=== PATIENT | female | born 1950 | race Caucasian/White ===

== ENCOUNTER → 2017-05-19 | Outpatient (CLI) | payer MEDICARE, OTHER ==
[~2017-05-19] MED LIST: ACET325 PO; ALLO100 PO; AMOX875 PO; CEPH500; FURO20 PO; HYDR10 PO; HYDR1TAB94 PO; INSULANPEN SC; LEVSOD125 PO; LISI5 PO; MIRALAX17 GM PO; ONDA4ODT PO; POTCHL10ER PO; PRAV20 PO; Pedi-Dri 100,0060 GM TOP; SACC250C PO; SERT50 PO
[2017-05-19 15:45] LABS: Hematocrit 39.9 % (33.0-51.0); Hemoglobin 12.4 g/dL (11.5-16.0)
[2017-05-19 16:03] LABS: Albumin, Blood 3.7 g/dL (3.4-5.0); Anion Gap 7 mmol/L (6-16); Blood Urea Nitrogen 55 mg/dL (8-24); Bun/Creatinine Ratio 29.7 (12.0-20.0); CO2, Blood 25 mmol/L (21-32); Calcium, Blood 9.6 mg/dL (8.5-10.1); Chloride, Blood 105 mmol/L (98-108); Creatinine, Blood 1.85 mg/dL (0.40-1.00); Glomerular Filtration Rate 29 (60-); Glucose, Blood 251 mg/dL (70-99); Phosphorus, Blood 4.3 mg/dL (2.5-4.9); Potassium, Blood 5.4 mmol/L (3.5-5.5); Sodium, Blood 137 mmol/L (136-145)
== END | disposition home or self-care (01) ==
LOC: OLS 13:06
PROVIDERS: Internal Medicine
DX: N18.3 Chronic kidney disease, stage 3 (moderate) (principal); D63.1 Anemia in chronic kidney disease
CPT/HCPCS: 36415; 80069; 85014; 85018

== ENCOUNTER 2018-05-12 19:50 | Emergency (ER) | payer MEDICARE, OTHER ==
[~2018-05-12] VITALS: Ht 160 cm; Wt 114.8 kg
[2018-05-12 20:50] LABS: Calcium, Ionized (POC) 1.26 mmol/L (1.10-1.46); Chloride (POC) 108 mmol/L (98-108); Creatinine (POC) 1.9 mg/dL (0.6-1.0); Glucose (ISTAT POC) 114 mg/dL (70-99); Hemoglobin (POC) 12.6 g/dL (12.0-16.0); Potassium (POC) 5.7 mmol/L (3.5-5.5); Sodium (POC) 141 mmol/L (135-148); Total CO2 (POC) 21 mmol/L (21-32)
[2018-05-12] MEDS ORDERED: LISI20 (20:52)
[2018-05-12] MEDS ORDERED: ALLO100 (20:53)
[2018-05-12] MEDS ORDERED: PRAV20 (20:53)
[2018-05-12] MEDS ORDERED: Zestril30 MG PO (20:53)
[2018-05-12] MEDS ORDERED: LEVSOD125 (20:54)
[2018-05-12] MEDS ORDERED: INSULANPEN (20:54)
[2018-05-12] MEDS ORDERED: VARE1 PO (21:00)
[2018-05-12 21:06] LABS: BASOPHILS ABSOLUTE AUTO 0.07 K/mm3 (0.00-0.23); BASOPHILS PERCENT AUTO 1 % (0-2); EOSINOPHILS ABSOLUTE AUTO 0.44 K/mm3 (0.00-0.68); EOSINOPHILS PERCENT AUTO 4 % (0-6); Hematocrit 38.8 % (33.0-51.0); IMMATURE GRAN ABSOLUTE AUTO 0.26 K/mm3 (0.00-0.10); IMMATURE GRAN PERCENT AUTO 2 % (0-1); LYMPHOCYTES ABSOLUTE AUTO 2.21 K/mm3 (0.84-5.20); LYMPHOCYTES PERCENT AUTO 19 % (21-46); MONOCYTES ABSOLUTE AUTO 0.84 K/mm3 (0.16-1.47); MONOCYTES PERCENT AUTO 7 % (4-13); Mean Corpuscular HGB Conc 30.9 g/dL (31.5-36.5); Mean Corpuscular Volume 97 fL (80-100); NEUTROPHILS PERCENT AUTO 67 % (41-73); NRBC ABSOLUTE 0.04 K/mm3 (0.00-0.02); NRBC Auto 0.3 /100 WBC (0.0-0.2); Platelet Count 160 K/mm3 (150-400); RDW Coefficient Variation 17.2 % (11.7-14.2); RDW Standard Deviation 60.3 fL (35.1-46.3); White Blood Cell Count 11.52 K/mm3 (4.00-11.30)
[2018-05-12 21:25] LABS: Bilirubin, Total 0.5 mg/dL (0.1-1.0); Bun/Creatinine Ratio 20.8 (12.0-20.0); Calcium, Blood 9.1 mg/dL (8.5-10.1); Creatinine, Blood 2.02 mg/dL (0.40-1.00); Globulin, Blood 4.1 g/dL (2.2-4.0); Potassium, Blood 5.7 mmol/L (3.5-5.5); Total Protein, Blood 8.1 g/dL (6.4-8.2)
== END 2018-05-12 23:06 | disposition home or self-care (01) ==
LOC: ER 19:50
PROVIDERS: Emergency Medicine; Physician Assistant
DX: E87.6 Hypokalemia (principal); I13.0 Hypertensive heart and chronic kidney disease with heart failure and stage 1 through stage 4 chronic kidney disease, or unspecified chronic kidney disease; I50.9 Heart failure, unspecified; N18.4 Chronic kidney disease, stage 4 (severe); E11.22 Type 2 diabetes mellitus with diabetic chronic kidney disease; F32.9 Major depressive disorder, single episode, unspecified; E03.9 Hypothyroidism, unspecified; Z79.899 Other long term (current) drug therapy; F17.210 Nicotine dependence, cigarettes, uncomplicated; Z01.812 Encounter for preprocedural laboratory examination; L98.499 Non-pressure chronic ulcer of skin of other sites with unspecified severity
CPT/HCPCS: 36415; 80047; 80048; 80053; 85014; 85025; 93005; 93010; 96360; 99284-25; J7030

== ENCOUNTER 2018-05-15 08:55 | Day surgery (SDC) | payer MEDICARE, OTHER ==
[~2018-05-15] VITALS: Ht 160 cm; Wt 116.1 kg
[~2018-05-15 08:55] MED LIST changes: +ALLO100; +INSULANPEN; +LEVSOD125; +LISI20; +PRAV20; +VARE1 PO; +Zestril30 MG PO
--- NOTE | 2018-05-15 14:41 | NUR ---
05/15/18 1441 Aisha Escobar AT 1240 PT WAS DC'D IN STABLE CONDITION W/INSTRUCTIONS FOR CARE AND F/U. RX X2 GIVEN W/INSTRUCTIONS FOR USE BOTH PT AND HER DAUGHTER STATED UNDERSTANDING AND SHOWN HOW TO OPERATE AIR CELL CAST BOOT. KAREN PO FLUIDS AND BG WAS 119 AT ADMIT
== END 2018-05-15 12:40 | disposition home or self-care (01) ==
LOC: ORSCSDS 08:55
PROVIDERS: Podiatrist Foot & Ankle Surgery
PROC: 0QBN0ZZ Excision of Right Metatarsal, Open Approach (ICD-10-PCS; principal; 2018-05-15 10:15)
DX: L98.499 Non-pressure chronic ulcer of skin of other sites with unspecified severity (principal); I12.9 Hypertensive chronic kidney disease with stage 1 through stage 4 chronic kidney disease, or unspecified chronic kidney disease; E11.22 Type 2 diabetes mellitus with diabetic chronic kidney disease; N18.4 Chronic kidney disease, stage 4 (severe); E03.9 Hypothyroidism, unspecified; E66.01 Morbid (severe) obesity due to excess calories; Z68.42 Body mass index [BMI] 45.0-49.9, adult; Z79.899 Other long term (current) drug therapy
CPT/HCPCS: 82947; 88305; 88311; J0690; J1100; J1885; J2250; J2405; J3010; J7120

== ENCOUNTER 2022-02-05 02:38 | Day surgery (SDC) | payer MEDICARE, OTHER ==
[~2022-02-05 02:38] MED LIST changes: +INSULANI SC
== END 2022-02-05 23:09 | disposition home or self-care (01) ==
LOC: WOUND 02:38
DX: E11.621 Type 2 diabetes mellitus with foot ulcer (principal); L97.513 Non-pressure chronic ulcer of other part of right foot with necrosis of muscle; L97.519 Non-pressure chronic ulcer of other part of right foot with unspecified severity; L97.529 Non-pressure chronic ulcer of other part of left foot with unspecified severity; E11.622 Type 2 diabetes mellitus with other skin ulcer; L97.812 Non-pressure chronic ulcer of other part of right lower leg with fat layer exposed; E11.59 Type 2 diabetes mellitus with other circulatory complications; I70.203 Unspecified atherosclerosis of native arteries of extremities, bilateral legs; E11.40 Type 2 diabetes mellitus with diabetic neuropathy, unspecified; I12.9 Hypertensive chronic kidney disease with stage 1 through stage 4 chronic kidney disease, or unspecified chronic kidney disease; N18.9 Chronic kidney disease, unspecified; E11.22 Type 2 diabetes mellitus with diabetic chronic kidney disease; Z88.0 Allergy status to penicillin
CPT/HCPCS: G0463

== ENCOUNTER 2022-02-12 01:50 | Day surgery (SDC) | payer MEDICARE, OTHER | END 2022-02-12 23:22 | disposition home or self-care (01) | LOC: WOUND 01:50 | DX: E11.621 Type 2 diabetes mellitus with foot ulcer (principal); L97.513 Non-pressure chronic ulcer of other part of right foot with necrosis of muscle; L97.522 Non-pressure chronic ulcer of other part of left foot with fat layer exposed; L97.412 Non-pressure chronic ulcer of right heel and midfoot with fat layer exposed; E11.622 Type 2 diabetes mellitus with other skin ulcer; E11.51 Type 2 diabetes mellitus with diabetic peripheral angiopathy without gangrene; I70.203 Unspecified atherosclerosis of native arteries of extremities, bilateral legs; E11.22 Type 2 diabetes mellitus with diabetic chronic kidney disease; N18.9 Chronic kidney disease, unspecified; E11.40 Type 2 diabetes mellitus with diabetic neuropathy, unspecified; E87.5 Hyperkalemia; Z89.421 Acquired absence of other right toe(s); Z88.0 Allergy status to penicillin | CPT/HCPCS: A9270 ==

== ENCOUNTER 2022-02-19 03:07 | Day surgery (SDC) | payer MEDICARE, OTHER | END 2022-02-19 23:31 | disposition home or self-care (01) | LOC: WOUND 03:07 | DX: T87.89 Other complications of amputation stump (principal); E11.621 Type 2 diabetes mellitus with foot ulcer; L97.512 Non-pressure chronic ulcer of other part of right foot with fat layer exposed; E11.51 Type 2 diabetes mellitus with diabetic peripheral angiopathy without gangrene; I70.203 Unspecified atherosclerosis of native arteries of extremities, bilateral legs; E87.5 Hyperkalemia; E11.40 Type 2 diabetes mellitus with diabetic neuropathy, unspecified; E11.22 Type 2 diabetes mellitus with diabetic chronic kidney disease; N18.9 Chronic kidney disease, unspecified | CPT/HCPCS: G0463 ==

== ENCOUNTER 2022-02-26 04:13 | Day surgery (SDC) | payer MEDICARE, OTHER | END 2022-02-26 23:19 | disposition home or self-care (01) | LOC: WOUND 04:13 | DX: T87.89 Other complications of amputation stump (principal); E11.621 Type 2 diabetes mellitus with foot ulcer; L97.512 Non-pressure chronic ulcer of other part of right foot with fat layer exposed; E11.22 Type 2 diabetes mellitus with diabetic chronic kidney disease; N18.9 Chronic kidney disease, unspecified; E87.5 Hyperkalemia | CPT/HCPCS: G0463 ==

== ENCOUNTER 2022-03-05 08:00 | Day surgery (SDC) | payer MEDICARE, OTHER | END 2022-03-05 23:59 | disposition home or self-care (01) | LOC: WOUND 08:00 | DX: T87.89 Other complications of amputation stump (principal); E11.621 Type 2 diabetes mellitus with foot ulcer; L97.512 Non-pressure chronic ulcer of other part of right foot with fat layer exposed; L97.522 Non-pressure chronic ulcer of other part of left foot with fat layer exposed; E87.5 Hyperkalemia; N18.9 Chronic kidney disease, unspecified; E11.22 Type 2 diabetes mellitus with diabetic chronic kidney disease; E11.40 Type 2 diabetes mellitus with diabetic neuropathy, unspecified | CPT/HCPCS: A9270; G0463 ==

== ENCOUNTER → 2022-03-05 | Outpatient (CLI) | payer MEDICARE, OTHER | END | disposition home or self-care (01) | LOC: LAB 09:20 → LAB SHORT 09:20 → LAB FUT 02-27 15:10 | PROVIDERS: Internal Medicine Nephrology | DX: N18.30 Chronic kidney disease, stage 3 unspecified (principal); D63.1 Anemia in chronic kidney disease; N25.81 Secondary hyperparathyroidism of renal origin; E78.00 Pure hypercholesterolemia, unspecified; E55.9 Vitamin D deficiency, unspecified; R76.9 Abnormal immunological finding in serum, unspecified; R94.5 Abnormal results of liver function studies; R94.6 Abnormal results of thyroid function studies | CPT/HCPCS: 81050 ==

== ENCOUNTER 2022-03-12 03:29 | Day surgery (SDC) | payer MEDICARE, OTHER ==
[~2022-03-12 03:29] MED LIST changes: -ALLO100
== END 2022-03-12 22:43 | disposition home or self-care (01) ==
LOC: WOUND 03:29
DX: E11.621 Type 2 diabetes mellitus with foot ulcer (principal); T87.89 Other complications of amputation stump; I87.2 Venous insufficiency (chronic) (peripheral); L97.512 Non-pressure chronic ulcer of other part of right foot with fat layer exposed; L97.522 Non-pressure chronic ulcer of other part of left foot with fat layer exposed; N18.9 Chronic kidney disease, unspecified; E11.40 Type 2 diabetes mellitus with diabetic neuropathy, unspecified; E11.22 Type 2 diabetes mellitus with diabetic chronic kidney disease; E11.51 Type 2 diabetes mellitus with diabetic peripheral angiopathy without gangrene; I70.203 Unspecified atherosclerosis of native arteries of extremities, bilateral legs; E87.5 Hyperkalemia
CPT/HCPCS: G0463

== ENCOUNTER 2022-03-18 08:47 | Day surgery (SDC) | payer MEDICARE, OTHER ==
[~2022-03-18] VITALS: Ht 160 cm; Wt 97.1 kg
--- NOTE | 2022-03-18 09:48 | NUR ---
LAB AT THE BEDSIDE FOR LAB DRAW. LAST LABS WERE DATED Feb,. PATIENT PREPPED FOR PROCEDURE PER PROTOCOL AND FAMILY REMAINS AT THE BEDSDIE. ALL QUESTIONS ANSWERED.
[2022-03-18 10:21] LABS: International Normalized Ratio 0.98; Prothrombin Time Results 10.3 Sec (9.7-11.5)
[2022-03-18 10:45] LABS: Bun/Creatinine Ratio 26.7 (12.0-20.0); Calcium, Blood 8.9 mg/dL (8.5-10.1); Creatinine, Blood 2.32 mg/dL (0.40-1.00); Potassium, Blood 5.3 mmol/L (3.5-5.5)
[2022-03-18 10:46] LABS: BASOPHILS ABSOLUTE AUTO 0.05 K/mm3 (0.00-0.23); BASOPHILS PERCENT AUTO 1 % (0-2); EOSINOPHILS ABSOLUTE AUTO 0.15 K/mm3 (0.00-0.68); EOSINOPHILS PERCENT AUTO 2 % (0-6); IMMATURE GRAN ABSOLUTE AUTO 0.12 K/mm3 (0.00-0.10); IMMATURE GRAN PERCENT AUTO 1 % (0-1); LYMPHOCYTES ABSOLUTE AUTO 1.28 K/mm3 (0.84-5.20); LYMPHOCYTES PERCENT AUTO 14 % (21-46); MONOCYTES ABSOLUTE AUTO 0.73 K/mm3 (0.16-1.47); MONOCYTES PERCENT AUTO 8 % (4-13); Mean Corpuscular HGB 28.8 pg (26.0-34.0); Mean Corpuscular Volume 93 fL (80-100); NEUTROPHILS ABSOLUTE AUTO 6.94 K/mm3 (1.96-9.15); NEUTROPHILS PERCENT AUTO 75 % (41-73); NRBC ABSOLUTE 0.02 K/mm3 (0.00-0.02); NRBC Auto 0.2 /100 WBC (0.0-0.2); RDW Coefficient Variation 15.2 % (11.7-14.2); RDW Standard Deviation 52.1 fL (35.1-46.3); Red Blood Cell Count 4.51 M/mm3 (3.80-5.20); White Blood Cell Count 9.27 K/mm3 (4.00-11.30)
[2022-03-18 10:49] LABS: Mean Platelet Volume 10.3 fL (9.1-12.4)
[2022-03-18 11:47] LABS: Platelet Count 121 K/mm3 (150-400)
--- NOTE | 2022-03-18 14:29 | NUR ---
1410 PATIENT RETURNED FROM THE CATHLAB, PATIENT PLACED ON THE MONITOR AND SBAR RECEIVED FROM RUY PUENTE AT [facility] BEDSIDE. DR. HERNANDEZ AT THE BEDSIDE TO OBTAIN DOPPLER PULSES TO THE RIGHT/LEFT FOOT. UNABLE TO FIND RIGHT DP ALL OTHERS FOUND. DRESSING TO THE RIGHT DP/PT REMOVED WHILE FINDING PULSES AND THE RPT LUIS DRESSING REPLACED AFTER SITE CLEANED. THE RIGHT DP SITE LEFT OPEN TO AIR. THE LEFT FEMORAL SITE IS CDI WITH DRESSING IN PLACE. SOFT, NO BLEEDING NOTED. NIBP AND SAT READING ARE LOW BUT THE PATIENT IS SLEEPY ADN DID RECEIVE SEDATION IN THE LAB, CONINTUE TO MONITOR.
--- NOTE | 2022-03-18 16:49 | NUR ---
1700 PATIENT UP TO THE RESTROOM WITH ASSISTANCE AND WALKER. VOIDED. BACK TO THE BEDSIDE AND SAT ON THE SIDE ON THE BED TO EAT LATE LUNCH TRAY. DAUGHTER TO THE BEDSIDE. VVS. RIGHT FOOT STABLE, NO BLEEDING NOTED.
--- NOTE | 2022-03-18 16:57 | NUR ---
1700 PATIENT UP AND DRESSING, ALL BELONGINGS RETAINED BY PATIENT. PIV REMOVED FROM KERI LEFT AC AND PRESSURE DRESSING APPLIED. CATH TIP INTACT. REVIEWED DISCHARGE INSTRUCTIONS WITH THE PAITENT AND DAUGHTER. THE PATIETN WILL FOLLOW UP WITH DR. GOLD'S OFFICE REGARDING UPCOMING CT OF KIDNEY'S
--- NOTE | 2022-03-18 17:25 | NUR ---
1710 RIGHT FOOT REWRAPPED AND PATIENT DISCHARGED HOME VIA WHEELCHAIR.
== END 2022-03-18 17:00 | disposition home or self-care (01) ==
LOC: MHTC 08:47
PROVIDERS: Radiology Diagnostic Radiology
DX: E11.51 Type 2 diabetes mellitus with diabetic peripheral angiopathy without gangrene (principal); I70.221 Atherosclerosis of native arteries of extremities with rest pain, right leg; I12.9 Hypertensive chronic kidney disease with stage 1 through stage 4 chronic kidney disease, or unspecified chronic kidney disease; E11.22 Type 2 diabetes mellitus with diabetic chronic kidney disease; M10.9 Gout, unspecified; E78.5 Hyperlipidemia, unspecified; N18.9 Chronic kidney disease, unspecified; Z90.711 Acquired absence of uterus with remaining cervical stump; Z89.421 Acquired absence of other right toe(s); Z87.891 Personal history of nicotine dependence
CPT/HCPCS: 36140; 36415; 37228; 37232; 75625; 75716; 75774; 76937; 80048; 85025; 85347; 85610; 99152; 99153; C1725; C1760; C1769; C1874; C1887; C1894; C2623; C9765; J1644; J2250; J3010; J7030; J7040; Q9967

== ENCOUNTER 2022-03-26 02:17 | Day surgery (SDC) | payer MEDICARE, OTHER | END 2022-03-26 23:05 | disposition home or self-care (01) | LOC: WOUND 02:17 | DX: T87.89 Other complications of amputation stump (principal); Z89.421 Acquired absence of other right toe(s); E11.621 Type 2 diabetes mellitus with foot ulcer; L97.512 Non-pressure chronic ulcer of other part of right foot with fat layer exposed; E11.22 Type 2 diabetes mellitus with diabetic chronic kidney disease; N18.9 Chronic kidney disease, unspecified; E11.40 Type 2 diabetes mellitus with diabetic neuropathy, unspecified; E87.5 Hyperkalemia | CPT/HCPCS: A9270 ==

== ENCOUNTER 2022-04-02 02:59 | Day surgery (SDC) | payer MEDICARE, OTHER | END 2022-04-02 23:03 | disposition home or self-care (01) | LOC: WOUND 02:59 | DX: T87.89 Other complications of amputation stump (principal); E11.621 Type 2 diabetes mellitus with foot ulcer; L97.512 Non-pressure chronic ulcer of other part of right foot with fat layer exposed; E11.22 Type 2 diabetes mellitus with diabetic chronic kidney disease; N18.9 Chronic kidney disease, unspecified; I70.203 Unspecified atherosclerosis of native arteries of extremities, bilateral legs; E87.5 Hyperkalemia | CPT/HCPCS: A9270 ==

== ENCOUNTER 2022-04-09 02:13 | Day surgery (SDC) | payer MEDICARE, OTHER | END 2022-04-09 22:45 | disposition home or self-care (01) | LOC: WOUND 02:13 | DX: T87.89 Other complications of amputation stump (principal); E11.621 Type 2 diabetes mellitus with foot ulcer; L97.512 Non-pressure chronic ulcer of other part of right foot with fat layer exposed; L97.522 Non-pressure chronic ulcer of other part of left foot with fat layer exposed; L89.890 Pressure ulcer of other site, unstageable | CPT/HCPCS: A9270; G0463 ==

== ENCOUNTER 2022-04-16 00:21 | Day surgery (SDC) | payer MEDICARE, OTHER | END 2022-04-16 23:18 | disposition home or self-care (01) | LOC: WOUND 00:21 | DX: E11.621 Type 2 diabetes mellitus with foot ulcer (principal); L97.513 Non-pressure chronic ulcer of other part of right foot with necrosis of muscle; E11.59 Type 2 diabetes mellitus with other circulatory complications; I70.203 Unspecified atherosclerosis of native arteries of extremities, bilateral legs; E11.22 Type 2 diabetes mellitus with diabetic chronic kidney disease; N18.9 Chronic kidney disease, unspecified; E11.40 Type 2 diabetes mellitus with diabetic neuropathy, unspecified; E87.5 Hyperkalemia | CPT/HCPCS: G0463 ==

== ENCOUNTER 2022-04-25 04:09 | Day surgery (SDC) | payer MEDICARE, OTHER | END 2022-04-25 22:47 | disposition home or self-care (01) | LOC: WOUND 04:09 | DX: E11.621 Type 2 diabetes mellitus with foot ulcer (principal); T87.89 Other complications of amputation stump; L97.522 Non-pressure chronic ulcer of other part of left foot with fat layer exposed; L97.512 Non-pressure chronic ulcer of other part of right foot with fat layer exposed; E11.51 Type 2 diabetes mellitus with diabetic peripheral angiopathy without gangrene; E11.22 Type 2 diabetes mellitus with diabetic chronic kidney disease; I70.203 Unspecified atherosclerosis of native arteries of extremities, bilateral legs; N18.9 Chronic kidney disease, unspecified; E87.5 Hyperkalemia | CPT/HCPCS: G0463 ==

== ENCOUNTER 2022-05-07 01:25 | Day surgery (SDC) | payer MEDICARE, OTHER | END 2022-05-07 22:46 | disposition home or self-care (01) | LOC: WOUND 01:25 | DX: E11.621 Type 2 diabetes mellitus with foot ulcer (principal); E11.22 Type 2 diabetes mellitus with diabetic chronic kidney disease; L97.513 Non-pressure chronic ulcer of other part of right foot with necrosis of muscle; L03.115 Cellulitis of right lower limb; M86.171 Other acute osteomyelitis, right ankle and foot; N18.9 Chronic kidney disease, unspecified; I70.203 Unspecified atherosclerosis of native arteries of extremities, bilateral legs; E11.40 Type 2 diabetes mellitus with diabetic neuropathy, unspecified; E11.59 Type 2 diabetes mellitus with other circulatory complications; E87.5 Hyperkalemia; Z79.4 Long term (current) use of insulin; L89.899 Pressure ulcer of other site, unspecified stage | CPT/HCPCS: G0463 ==

== ENCOUNTER 2022-05-21 00:28 | Day surgery (SDC) | payer MEDICARE, OTHER | END 2022-05-21 22:55 | disposition home or self-care (01) | LOC: WOUND 00:28 | DX: E11.69 Type 2 diabetes mellitus with other specified complication (principal); M86.171 Other acute osteomyelitis, right ankle and foot; E11.621 Type 2 diabetes mellitus with foot ulcer; L97.513 Non-pressure chronic ulcer of other part of right foot with necrosis of muscle; L03.115 Cellulitis of right lower limb; E11.22 Type 2 diabetes mellitus with diabetic chronic kidney disease; N18.9 Chronic kidney disease, unspecified; E11.40 Type 2 diabetes mellitus with diabetic neuropathy, unspecified; I70.203 Unspecified atherosclerosis of native arteries of extremities, bilateral legs | CPT/HCPCS: G0463 ==

== ENCOUNTER 2022-05-28 01:05 | Day surgery (SDC) | payer MEDICARE, OTHER | END 2022-05-28 22:58 | disposition home or self-care (01) | LOC: WOUND 01:05 | DX: E11.621 Type 2 diabetes mellitus with foot ulcer (principal); L97.513 Non-pressure chronic ulcer of other part of right foot with necrosis of muscle; L89.892 Pressure ulcer of other site, stage 2; E11.69 Type 2 diabetes mellitus with other specified complication; M86.171 Other acute osteomyelitis, right ankle and foot; E11.22 Type 2 diabetes mellitus with diabetic chronic kidney disease; N18.9 Chronic kidney disease, unspecified; E11.40 Type 2 diabetes mellitus with diabetic neuropathy, unspecified; E11.51 Type 2 diabetes mellitus with diabetic peripheral angiopathy without gangrene; I70.203 Unspecified atherosclerosis of native arteries of extremities, bilateral legs | CPT/HCPCS: A9270 ==

== ENCOUNTER 2022-06-04 06:41 | Day surgery (SDC) | payer MEDICARE, OTHER ==
[~2022-06-04] VITALS: Ht 160 cm; Wt 97.9 kg
--- NOTE | 2022-06-04 07:04 | NUR ---
06/04/22 0704 Carlie Costa CALL LIGHT WITHIN REACH. LAKSHMIIN IN RIGHT EYE AT 0655 AND YAMINI AT 0656
== END 2022-06-04 08:10 | disposition home or self-care (01) ==
LOC: ORSCSDS 06:41
PROVIDERS: Student in an Organized Health Care Education/Training Program
PROC: 08DJ3ZZ Extraction of Right Lens, Percutaneous Approach (ICD-10-PCS; principal; 2022-06-04 07:30)
DX: E11.36 Type 2 diabetes mellitus with diabetic cataract (principal); H25.13 Age-related nuclear cataract, bilateral; I12.9 Hypertensive chronic kidney disease with stage 1 through stage 4 chronic kidney disease, or unspecified chronic kidney disease; N18.9 Chronic kidney disease, unspecified; E03.9 Hypothyroidism, unspecified; E78.5 Hyperlipidemia, unspecified; I73.9 Peripheral vascular disease, unspecified; M10.9 Gout, unspecified; Z87.891 Personal history of nicotine dependence; Z79.4 Long term (current) use of insulin; Z79.899 Other long term (current) drug therapy
CPT/HCPCS: 82947; J2001; J2250; J7040; V2632

== ENCOUNTER 2022-06-05 08:00 | Day surgery (SDC) | payer MEDICARE, OTHER | END 2022-06-05 23:59 | disposition home or self-care (01) | LOC: WOUND 08:00 | DX: T87.89 Other complications of amputation stump (principal); E11.621 Type 2 diabetes mellitus with foot ulcer; L97.512 Non-pressure chronic ulcer of other part of right foot with fat layer exposed; L89.899 Pressure ulcer of other site, unspecified stage; L03.115 Cellulitis of right lower limb; M86.171 Other acute osteomyelitis, right ankle and foot; N18.9 Chronic kidney disease, unspecified; I70.203 Unspecified atherosclerosis of native arteries of extremities, bilateral legs; E11.51 Type 2 diabetes mellitus with diabetic peripheral angiopathy without gangrene; E11.22 Type 2 diabetes mellitus with diabetic chronic kidney disease | CPT/HCPCS: G0463 ==

== ENCOUNTER 2022-06-25 00:30 | Day surgery (SDC) | payer MEDICARE, OTHER ==
[2022-06-25] MEDS ORDERED: SODBIC650 PO (08:40)
[2022-06-25] MEDS ORDERED: Lasix40 MG PO (08:40)
== END 2022-06-25 23:04 | disposition home or self-care (01) ==
LOC: WOUND 00:30
DX: E11.621 Type 2 diabetes mellitus with foot ulcer (principal); L97.514 Non-pressure chronic ulcer of other part of right foot with necrosis of bone; L97.512 Non-pressure chronic ulcer of other part of right foot with fat layer exposed; E11.69 Type 2 diabetes mellitus with other specified complication; M86.171 Other acute osteomyelitis, right ankle and foot; E11.51 Type 2 diabetes mellitus with diabetic peripheral angiopathy without gangrene; I70.203 Unspecified atherosclerosis of native arteries of extremities, bilateral legs; E11.40 Type 2 diabetes mellitus with diabetic neuropathy, unspecified; L03.115 Cellulitis of right lower limb
CPT/HCPCS: G0463

== ENCOUNTER 2022-06-25 08:21 | Day surgery (SDC) | payer MEDICARE ==
[~2022-06-25] VITALS: Ht 160 cm; Wt 96.4 kg
[2022-06-25] MEDS ORDERED: SODBIC650 PO (08:40)
[2022-06-25] MEDS ORDERED: Lasix40 MG PO (08:40)
== END 2022-06-25 09:36 | disposition home or self-care (01) ==
LOC: ORSCSDS 08:21
PROVIDERS: Student in an Organized Health Care Education/Training Program
PROC: 08RK3JZ Replacement of Left Lens with Synthetic Substitute, Percutaneous Approach (ICD-10-PCS; principal; 2022-06-25 09:30)
DX: E11.36 Type 2 diabetes mellitus with diabetic cataract (principal); H25.12 Age-related nuclear cataract, left eye; I12.9 Hypertensive chronic kidney disease with stage 1 through stage 4 chronic kidney disease, or unspecified chronic kidney disease; E11.22 Type 2 diabetes mellitus with diabetic chronic kidney disease; N18.9 Chronic kidney disease, unspecified; E78.5 Hyperlipidemia, unspecified; E03.9 Hypothyroidism, unspecified; E66.9 Obesity, unspecified; Z68.37 Body mass index [BMI] 37.0-37.9, adult; Z79.4 Long term (current) use of insulin; Z79.899 Other long term (current) drug therapy
CPT/HCPCS: 82947; J2001; J2250; J3010; J7040; V2632

== ENCOUNTER 2022-07-08 00:28 | Day surgery (SDC) | payer MEDICARE, OTHER ==
[~2022-07-08 00:28] MED LIST changes: +Lasix40 MG PO; +SODBIC650 PO
== END 2022-07-08 23:12 | disposition home or self-care (01) ==
LOC: WOUND 00:28
DX: E11.621 Type 2 diabetes mellitus with foot ulcer (principal); L89.899 Pressure ulcer of other site, unspecified stage; L97.512 Non-pressure chronic ulcer of other part of right foot with fat layer exposed; I87.2 Venous insufficiency (chronic) (peripheral); E11.51 Type 2 diabetes mellitus with diabetic peripheral angiopathy without gangrene; E11.69 Type 2 diabetes mellitus with other specified complication; M86.171 Other acute osteomyelitis, right ankle and foot; E11.22 Type 2 diabetes mellitus with diabetic chronic kidney disease; N18.9 Chronic kidney disease, unspecified; E11.40 Type 2 diabetes mellitus with diabetic neuropathy, unspecified; I70.203 Unspecified atherosclerosis of native arteries of extremities, bilateral legs; L03.115 Cellulitis of right lower limb
CPT/HCPCS: G0463

== ENCOUNTER 2022-07-22 00:47 | Day surgery (SDC) | payer MEDICARE, OTHER | END 2022-07-22 22:49 | disposition home or self-care (01) | LOC: WOUND 00:47 | DX: E11.621 Type 2 diabetes mellitus with foot ulcer (principal); L97.512 Non-pressure chronic ulcer of other part of right foot with fat layer exposed; L89.894 Pressure ulcer of other site, stage 4; L03.115 Cellulitis of right lower limb; E11.69 Type 2 diabetes mellitus with other specified complication; M86.171 Other acute osteomyelitis, right ankle and foot; E11.22 Type 2 diabetes mellitus with diabetic chronic kidney disease; N18.9 Chronic kidney disease, unspecified; I70.235 Atherosclerosis of native arteries of right leg with ulceration of other part of foot; E11.51 Type 2 diabetes mellitus with diabetic peripheral angiopathy without gangrene; E11.40 Type 2 diabetes mellitus with diabetic neuropathy, unspecified ==

== ENCOUNTER 2022-07-29 01:07 | Day surgery (SDC) | payer MEDICARE, OTHER | END 2022-07-29 22:55 | disposition home or self-care (01) | LOC: WOUND 01:07 | DX: L89.894 Pressure ulcer of other site, stage 4 (principal); E11.621 Type 2 diabetes mellitus with foot ulcer; L97.512 Non-pressure chronic ulcer of other part of right foot with fat layer exposed; L97.513 Non-pressure chronic ulcer of other part of right foot with necrosis of muscle; L03.115 Cellulitis of right lower limb; M86.171 Other acute osteomyelitis, right ankle and foot; E11.22 Type 2 diabetes mellitus with diabetic chronic kidney disease; N18.9 Chronic kidney disease, unspecified; I70.203 Unspecified atherosclerosis of native arteries of extremities, bilateral legs; E11.40 Type 2 diabetes mellitus with diabetic neuropathy, unspecified | CPT/HCPCS: G0463 ==

== ENCOUNTER 2022-08-05 01:09 | Day surgery (SDC) | payer MEDICARE, OTHER | END 2022-08-05 22:38 | disposition home or self-care (01) | LOC: WOUND | DX: L89.894 Pressure ulcer of other site, stage 4 (principal); E11.621 Type 2 diabetes mellitus with foot ulcer; L97.512 Non-pressure chronic ulcer of other part of right foot with fat layer exposed; L97.519 Non-pressure chronic ulcer of other part of right foot with unspecified severity; L97.513 Non-pressure chronic ulcer of other part of right foot with necrosis of muscle; L03.115 Cellulitis of right lower limb; E11.69 Type 2 diabetes mellitus with other specified complication; M86.171 Other acute osteomyelitis, right ankle and foot; E11.22 Type 2 diabetes mellitus with diabetic chronic kidney disease; N18.9 Chronic kidney disease, unspecified; I70.203 Unspecified atherosclerosis of native arteries of extremities, bilateral legs; E11.40 Type 2 diabetes mellitus with diabetic neuropathy, unspecified | CPT/HCPCS: G0463 ==

== ENCOUNTER 2022-08-12 00:21 | Day surgery (SDC) | payer MEDICARE, OTHER | END 2022-08-12 22:55 | disposition home or self-care (01) | LOC: WOUND 00:21 | DX: E11.621 Type 2 diabetes mellitus with foot ulcer (principal); L97.513 Non-pressure chronic ulcer of other part of right foot with necrosis of muscle; E11.69 Type 2 diabetes mellitus with other specified complication; M86.171 Other acute osteomyelitis, right ankle and foot; L03.115 Cellulitis of right lower limb; E11.51 Type 2 diabetes mellitus with diabetic peripheral angiopathy without gangrene; I70.203 Unspecified atherosclerosis of native arteries of extremities, bilateral legs; E11.40 Type 2 diabetes mellitus with diabetic neuropathy, unspecified; E11.22 Type 2 diabetes mellitus with diabetic chronic kidney disease; N18.9 Chronic kidney disease, unspecified | CPT/HCPCS: G0463 ==

== ENCOUNTER 2023-09-26 02:40 | Day surgery (SDC) | payer MEDICARE, OTHER ==
[~2023-09-26 02:40] MED LIST changes: +ALLO300 PO; +BACLOFEN5 M1 PO; +BASAGLAR K100 UNIT/3 SC; +CLOPIDOGREL75 MG PO; +EUTHYROX150 MC1 PO; +EUTHYROX175 MCG PO; +FARXIGA10 MG PO; +FUROSEMIDE40 MG PO; +GABA300 PO; +HUMALOG100 UNIT/1; +Neurontin 100100 MG PO; +OXYC10TA19 PO; +PIOG15 PO; +PRAVASTATIN SOD40 MG PO; +Prinivil10 MG PO; +SERT25 PO; +VITAMIN D31000 UNI1 PO; +XARELTO20 MG PO; -Zestril30 MG PO
[2023-09-26] MEDS ORDERED: Silver Nitr/Potassium Nitrate 1 EA APPL ONE (12:46)
[2023-10-08] MEDS ORDERED: OXAYDO5 M1 PO (11:07)
[2023-10-08] MEDS ORDERED: SENN187 PO (11:08)
[2023-10-08] MEDS ORDERED: HUMALOG KW100 UNIT/1 SQ (11:08)
[2023-10-08] MEDS ORDERED: HUMALOG JU100 UNIT/2 SQ (11:08)
== END 2023-09-26 23:07 | disposition home or self-care (01) ==
LOC: WOUND
DX: L89.623 Pressure ulcer of left heel, stage 3 (principal); E11.621 Type 2 diabetes mellitus with foot ulcer; I87.2 Venous insufficiency (chronic) (peripheral); E11.51 Type 2 diabetes mellitus with diabetic peripheral angiopathy without gangrene; E11.40 Type 2 diabetes mellitus with diabetic neuropathy, unspecified; I12.9 Hypertensive chronic kidney disease with stage 1 through stage 4 chronic kidney disease, or unspecified chronic kidney disease; E11.22 Type 2 diabetes mellitus with diabetic chronic kidney disease; M10.9 Gout, unspecified; Z88.1 Allergy status to other antibiotic agents
CPT/HCPCS: 73630; A6213; A9270; G0463

== ENCOUNTER 2023-10-09 08:38 | Day surgery (SDC) | payer MEDICARE, OTHER ==
[2023-10-09] VITALS (11 sets, daily range): BP systolic 104–173; BP diastolic 46–81
[~2023-10-09] VITALS: Ht 160 cm; Wt 80.4 kg
[~2023-10-09 08:38] MED LIST changes: +HUMALOG JU100 UNIT/2 SQ; +HUMALOG KW100 UNIT/1 SQ; +OXAYDO5 M1 PO; +SENN187 PO
[2023-10-09] MEDS ORDERED: ACET325 PO (10:04)
[2023-10-09] MEDS ORDERED: BACLOFEN5 M1 PO (10:05)
[2023-10-09 10:23] LABS: Hemoglobin 9.7 g/dL (11.5-16.0); Mean Corpuscular HGB 26.1 pg (26.0-34.0); Mean Corpuscular HGB Conc 29.4 g/dL (31.5-36.5); Mean Corpuscular Volume 89 fL (80-100); NRBC ABSOLUTE 0.02 K/mm3 (0.00-0.02); NRBC Auto 0.2 /100 WBC (0.0-0.2); Platelet Count 124 K/mm3 (150-400); RDW Coefficient Variation 17.1 % (11.7-14.2); RDW Standard Deviation 54.8 fL (35.1-46.3); Red Blood Cell Count 3.72 M/mm3 (3.80-5.20); White Blood Cell Count 9.55 K/mm3 (4.00-11.30)
[2023-10-09 10:37] LABS: Prothrombin Time Results 10.7 Sec (9.7-11.5)
[2023-10-09 10:46] LABS: Bun/Creatinine Ratio 34.1 (12.0-20.0); Calcium, Blood 9.1 mg/dL (8.5-10.1); Creatinine, Blood 1.64 mg/dL (0.40-1.00); Potassium, Blood 4.6 mmol/L (3.5-5.5)
[2023-10-09] MEDS ORDERED: NS 250 ML IV ONE ×2 (12:05→12:16)
[2023-10-09] MEDS ORDERED: Heparin Sodium 1000 Units/ML 10ML MDV ONE ×2 (12:06→13:47)
[2023-10-09] MEDS ORDERED: NS 1,000 ML IV ONE ×2 (12:06→12:16)
[2023-10-09] MEDS ORDERED: Midazolam HCl 1MG / ML 2ML Vial ONE ×2 (12:15→12:47)
[2023-10-09] MEDS ORDERED: FentaNYL Citrate 50 MCG/ML 2 ML Injection ONE ×2 (12:16→12:48)
--- NOTE | 2023-10-09 15:12 | NUR ---
PT BACK TO RECOVERY FROM LAB. PT A&O. GROIN SITE AND PEDAL SITE SOFT AND NON-TENDER PER PT. NO BLEEDING NOTED.
--- NOTE | 2023-10-09 15:53 | NUR ---
groin site soft and non-tender per pt. pedal site soft and non-tender. no bleeding noted to either site. pt sat up 30 degrees.
--- NOTE | 2023-10-09 16:36 | NUR ---
pt given food per request. pt sitting up. groin and pedal site both soft and non-tender per pt. no bleeding noted.
--- NOTE | 2023-10-09 16:54 | NUR ---
groin site soft and non-tender. no bleeding noted.
--- NOTE | 2023-10-09 17:33 | NUR ---
PT GIVEN DC INSTRUCTIONS AND VERBALIOZED UNDERSTANDING. IV OUT. PT CHNAGED. GROIN SITE AND PEDAL SITE SOFT AND NON-TENDER PER PT. NO BLEEDING NOTED. PT TAKEN TO LBY VIA WC WHERE DAUGHTER WAS WAITING TO TAKE PT TO [facility].
== END 2023-10-09 22:43 | disposition home or self-care (01) ==
LOC: MHTC 08:38
PROVIDERS: Radiology Diagnostic Radiology
DX: E11.51 Type 2 diabetes mellitus with diabetic peripheral angiopathy without gangrene (principal); I70.222 Atherosclerosis of native arteries of extremities with rest pain, left leg; E11.621 Type 2 diabetes mellitus with foot ulcer; L97.522 Non-pressure chronic ulcer of other part of left foot with fat layer exposed; I12.9 Hypertensive chronic kidney disease with stage 1 through stage 4 chronic kidney disease, or unspecified chronic kidney disease; E11.22 Type 2 diabetes mellitus with diabetic chronic kidney disease; N18.9 Chronic kidney disease, unspecified; E78.5 Hyperlipidemia, unspecified; E03.9 Hypothyroidism, unspecified; Z89.611 Acquired absence of right leg above knee; Z87.891 Personal history of nicotine dependence; Z88.0 Allergy status to penicillin; Z88.1 Allergy status to other antibiotic agents; Z79.890 Hormone replacement therapy; Z79.02 Long term (current) use of antithrombotics/antiplatelets; Z79.899 Other long term (current) drug therapy
CPT/HCPCS: 75625; 75716; 75774; 76937; 80048; 85027; 85610; 99152; 99153; C1725; C1760; C1769; C1887; C1894; C9764; J1644; J2250; J3010; J7030; J7050; Q9967

== ENCOUNTER 2023-10-17 03:12 | Day surgery (SDC) | payer MEDICARE, OTHER | END 2023-10-17 23:12 | disposition home or self-care (01) | LOC: WOUND 03:12 | DX: L89.893 Pressure ulcer of other site, stage 3 (principal); E11.621 Type 2 diabetes mellitus with foot ulcer; I10 Essential (primary) hypertension; E11.51 Type 2 diabetes mellitus with diabetic peripheral angiopathy without gangrene; I87.2 Venous insufficiency (chronic) (peripheral) | CPT/HCPCS: A6213 ==

== ENCOUNTER 2023-10-24 02:28 | Day surgery (SDC) | payer MEDICARE, OTHER | END 2023-10-24 23:15 | disposition home or self-care (01) | LOC: WOUND | DX: L89.893 Pressure ulcer of other site, stage 3 (principal); E11.621 Type 2 diabetes mellitus with foot ulcer; L97.519 Non-pressure chronic ulcer of other part of right foot with unspecified severity; E11.40 Type 2 diabetes mellitus with diabetic neuropathy, unspecified; I10 Essential (primary) hypertension; I73.9 Peripheral vascular disease, unspecified; I87.2 Venous insufficiency (chronic) (peripheral) ==

== ENCOUNTER 2023-10-29 14:45 | Emergency (ER) | payer MEDICARE, OTHER ==
[~2023-10-29] VITALS: Ht 160 cm; Wt 80.3 kg
[2023-10-29] MEDS ORDERED: CIPR500 PO (16:29)
[2023-10-29] MEDS ORDERED: CLIN300 PO (16:35)
[2023-10-29 18:04] VITALS: BP 152/61
== END 2023-10-29 18:05 | disposition home or self-care (01) ==
LOC: ER 14:45
DX: S90.822A Blister (nonthermal), left foot, initial encounter (principal); L08.9 Local infection of the skin and subcutaneous tissue, unspecified; X58.XXXA Exposure to other specified factors, initial encounter; I13.0 Hypertensive heart and chronic kidney disease with heart failure and stage 1 through stage 4 chronic kidney disease, or unspecified chronic kidney disease; E11.22 Type 2 diabetes mellitus with diabetic chronic kidney disease; N18.4 Chronic kidney disease, stage 4 (severe); I50.9 Heart failure, unspecified; F32.A Depression, unspecified; E03.9 Hypothyroidism, unspecified; F17.210 Nicotine dependence, cigarettes, uncomplicated; Z79.4 Long term (current) use of insulin; Z79.890 Hormone replacement therapy; Z79.899 Other long term (current) drug therapy; Z88.0 Allergy status to penicillin; Z88.2 Allergy status to sulfonamides; Z88.1 Allergy status to other antibiotic agents
CPT/HCPCS: 73620; 87070; 87147; 87205; 99284-25

== ENCOUNTER 2023-10-31 01:27 | Day surgery (SDC) | payer MEDICARE, OTHER ==
[~2023-10-31 01:27] MED LIST changes: +CIPR500 PO; +CLIN300 PO
== END 2023-10-31 22:40 | disposition home or self-care (01) ==
LOC: WOUND 01:27
DX: L89.893 Pressure ulcer of other site, stage 3 (principal); E11.622 Type 2 diabetes mellitus with other skin ulcer; L97.822 Non-pressure chronic ulcer of other part of left lower leg with fat layer exposed; E11.621 Type 2 diabetes mellitus with foot ulcer; E11.51 Type 2 diabetes mellitus with diabetic peripheral angiopathy without gangrene; I87.2 Venous insufficiency (chronic) (peripheral)

== ENCOUNTER 2023-11-06 02:38 | Day surgery (SDC) | payer MEDICARE, OTHER | END 2023-11-07 22:49 | disposition home or self-care (01) | LOC: WOUND 02:38 | DX: L89.893 Pressure ulcer of other site, stage 3 (principal); L97.822 Non-pressure chronic ulcer of other part of left lower leg with fat layer exposed; L97.422 Non-pressure chronic ulcer of left heel and midfoot with fat layer exposed; I73.9 Peripheral vascular disease, unspecified | CPT/HCPCS: A6196 ==

== ENCOUNTER 2023-11-13 03:14 | Day surgery (SDC) | payer MEDICARE, OTHER | END 2023-11-13 22:55 | disposition home or self-care (01) | LOC: WOUND 03:14 | DX: L97.822 Non-pressure chronic ulcer of other part of left lower leg with fat layer exposed (principal); L89.893 Pressure ulcer of other site, stage 3; L97.422 Non-pressure chronic ulcer of left heel and midfoot with fat layer exposed; E11.621 Type 2 diabetes mellitus with foot ulcer; I10 Essential (primary) hypertension; E11.51 Type 2 diabetes mellitus with diabetic peripheral angiopathy without gangrene; I87.2 Venous insufficiency (chronic) (peripheral) ==

== ENCOUNTER 2023-11-18 01:58 | Day surgery (SDC) | payer MEDICARE, OTHER ==
[2023-11-18] MEDS ORDERED: Silver Nitr/Potassium Nitrate 1 EA APPL ONE ×2 (11:02)
[2023-11-18] MEDS ORDERED: TOUJEO SOL300 UNIT/2 SC (15:23)
[2023-11-18] MEDS ORDERED: CLIN150 PO (15:23)
[2023-11-18] MEDS ORDERED: ADMELOG SO100 UNIT/2 (15:24)
[2023-11-18] MEDS ORDERED: PIOGLITAZONE HC15 MG PO (15:24)
[2023-11-18] MEDS ORDERED: BUMETANIDE2 M6 PO (15:24)
== END 2023-11-18 23:16 | disposition home or self-care (01) ==
LOC: WOUND 01:58
DX: L89.893 Pressure ulcer of other site, stage 3 (principal); E11.621 Type 2 diabetes mellitus with foot ulcer; L97.422 Non-pressure chronic ulcer of left heel and midfoot with fat layer exposed; E11.622 Type 2 diabetes mellitus with other skin ulcer; L97.822 Non-pressure chronic ulcer of other part of left lower leg with fat layer exposed; E11.51 Type 2 diabetes mellitus with diabetic peripheral angiopathy without gangrene; I87.2 Venous insufficiency (chronic) (peripheral); I10 Essential (primary) hypertension
CPT/HCPCS: A9270; G0463

== ENCOUNTER 2023-11-18 11:19 | Emergency (ER) | payer MEDICARE, OTHER ==
[~2023-11-18] VITALS: Ht 160 cm; Wt 80.3 kg
[2023-11-18 14:59] VITALS: BP 121/61
[2023-11-18 15:08] LABS: BASOPHILS ABSOLUTE AUTO 0.03 K/mm3 (0.00-0.23); BASOPHILS PERCENT AUTO 0 % (0-2); EOSINOPHILS ABSOLUTE AUTO 0.23 K/mm3 (0.00-0.68); EOSINOPHILS PERCENT AUTO 2 % (0-6); Hemoglobin 9.2 g/dL (11.5-16.0); IMMATURE GRAN ABSOLUTE AUTO 0.13 K/mm3 (0.00-0.10); IMMATURE GRAN PERCENT AUTO 1 % (0-1); LYMPHOCYTES PERCENT AUTO 7 % (21-46); MONOCYTES ABSOLUTE AUTO 0.54 K/mm3 (0.16-1.47); MONOCYTES PERCENT AUTO 5 % (4-13); Mean Corpuscular HGB 24.7 pg (26.0-34.0); Mean Corpuscular HGB Conc 29.7 g/dL (31.5-36.5); Mean Corpuscular Volume 83 fL (80-100); Mean Platelet Volume 8.4 fL (9.1-12.4); NEUTROPHILS ABSOLUTE AUTO 8.75 K/mm3 (1.96-9.15); NEUTROPHILS PERCENT AUTO 84 % (41-73); NRBC ABSOLUTE 0.02 K/mm3 (0.00-0.02); NRBC Auto 0.2 /100 WBC (0.0-0.2); Platelet Count 180 K/mm3 (150-400); RDW Coefficient Variation 17.2 % (11.7-14.2); RDW Standard Deviation 51.9 fL (35.1-46.3); Red Blood Cell Count 3.73 M/mm3 (3.80-5.20); White Blood Cell Count 10.38 K/mm3 (4.00-11.30)
[2023-11-18] MEDS ORDERED: TOUJEO SOL300 UNIT/2 (15:23)
[2023-11-18] MEDS ORDERED: CLIN150 PO (15:23)
[2023-11-18] MEDS ORDERED: PIOGLITAZONE HC15 MG PO (15:24)
[2023-11-18] MEDS ORDERED: ADMELOG SO100 UNIT/2 (15:24)
[2023-11-18] MEDS ORDERED: BUMETANIDE2 M6 PO (15:24)
[2023-11-18 15:33] LABS: Alanine Aminotransfer (ALT/SGP 19 U/L (12-78); Albumin, Blood 2.6 g/dL (3.4-5.0); Albumin/Globulin Ratio 0.5 (0.8-1.8); Alk Phos 106 U/L (50-136); Anion Gap 13 mmol/L (3-11); Aspartate Aminotrans (AST/SGOT 15 U/L (12-37); Bilirubin, Total 0.5 mg/dL (0.1-1.0); Blood Urea Nitrogen 99 mg/dL (8-24); Bun/Creatinine Ratio 51.6 (12.0-20.0); C-REACTIVE PROTEIN, EXT RANGE >19.000 mg/dL (0.000-0.300); CO2, Blood 26 mmol/L (21-32); Calcium, Blood 9.1 mg/dL (8.5-10.1); Chloride, Blood 94 mmol/L (98-108); Creatinine, Blood 1.92 mg/dL (0.40-1.00); Globulin, Blood 5.3 g/dL (2.2-4.0); Glomerular Filtration Rate 27 (60-); Glucose, Blood 164 mg/dL (70-99); Potassium, Blood 3.9 mmol/L (3.5-5.5); Sodium, Blood 129 mmol/L (136-145); Total Protein, Blood 7.9 g/dL (6.4-8.2)
== END 2023-11-18 16:05 | disposition home or self-care (01) ==
LOC: ER 11:19
PROVIDERS: Emergency Medicine
DX: L08.9 Local infection of the skin and subcutaneous tissue, unspecified (principal); E11.22 Type 2 diabetes mellitus with diabetic chronic kidney disease; I13.0 Hypertensive heart and chronic kidney disease with heart failure and stage 1 through stage 4 chronic kidney disease, or unspecified chronic kidney disease; N18.4 Chronic kidney disease, stage 4 (severe); I50.9 Heart failure, unspecified; F17.210 Nicotine dependence, cigarettes, uncomplicated; Z79.899 Other long term (current) drug therapy; Z79.890 Hormone replacement therapy; Z79.4 Long term (current) use of insulin; Z88.2 Allergy status to sulfonamides; Z88.1 Allergy status to other antibiotic agents; Z88.0 Allergy status to penicillin
CPT/HCPCS: 73620; 80053; 85025; 85651; 86140; 93926

== ENCOUNTER 2023-11-20 11:10 | Inpatient (IN) | payer MEDICARE, OTHER ==
[~2023-11-20] VITALS: Ht 172.7 cm; Wt 99.0 kg
[~2023-11-20 11:10] MED LIST changes: +ADMELOG SO100 UNIT/2; +BUMETANIDE2 M6 PO; +CLIN150 PO; +PIOGLITAZONE HC15 MG PO; +TOUJEO SOL300 UNIT/2 SC
[2023-11-20 11:43] LABS: BASOPHILS ABSOLUTE AUTO 0.03 K/mm3 (0.00-0.23); BASOPHILS PERCENT AUTO 0 % (0-2); EOSINOPHILS ABSOLUTE AUTO 0.16 K/mm3 (0.00-0.68); EOSINOPHILS PERCENT AUTO 2 % (0-6); Hematocrit 29.2 % (33.0-51.0); Hemoglobin 8.7 g/dL (11.5-16.0); IMMATURE GRAN ABSOLUTE AUTO 0.17 K/mm3 (0.00-0.10); IMMATURE GRAN PERCENT AUTO 2 % (0-1); LYMPHOCYTES ABSOLUTE AUTO 0.59 K/mm3 (0.84-5.20); LYMPHOCYTES PERCENT AUTO 6 % (21-46); MONOCYTES ABSOLUTE AUTO 0.54 K/mm3 (0.16-1.47); MONOCYTES PERCENT AUTO 5 % (4-13); Mean Corpuscular HGB 24.7 pg (26.0-34.0); Mean Corpuscular HGB Conc 29.8 g/dL (31.5-36.5); Mean Corpuscular Volume 83 fL (80-100); Mean Platelet Volume 8.4 fL (9.1-12.4); NEUTROPHILS ABSOLUTE AUTO 9.29 K/mm3 (1.96-9.15); NEUTROPHILS PERCENT AUTO 86 % (41-73); Platelet Count 176 K/mm3 (150-400); RDW Coefficient Variation 17.3 % (11.7-14.2); RDW Standard Deviation 52.5 fL (35.1-46.3); Red Blood Cell Count 3.52 M/mm3 (3.80-5.20); White Blood Cell Count 10.78 K/mm3 (4.00-11.30)
[2023-11-20 12:22] LABS: Albumin, Blood 2.4 g/dL (3.4-5.0); Albumin/Globulin Ratio 0.5 (0.8-1.8); Bilirubin, Total 0.5 mg/dL (0.1-1.0); Bun/Creatinine Ratio 47.3 (12.0-20.0); Creatinine, Blood 2.2 mg/dL (0.40-1.00); Globulin, Blood 4.9 g/dL (2.2-4.0); Potassium, Blood 4.4 mmol/L (3.5-5.5); Total Protein, Blood 7.3 g/dL (6.4-8.2)
[2023-11-20] MEDS ORDERED: HUMALOG100 UNIT/1 (13:58)
[2023-11-20] MEDS ORDERED: VITAMIN D325 MC3 PO (13:59)
[2023-11-20] MEDS ORDERED: Acetaminophen325 M1 PO (13:59)
[2023-11-20] MEDS ORDERED: NYSTATIN (14:01)
[2023-11-20] MEDS ORDERED: TRAM50 PO (14:02)
[2023-11-20] MEDS ORDERED: LABE100 PO (14:02)
[2023-11-20] MEDS ORDERED: Vancomycin HCL 1,750 MG in NS 500 ML IV ONE (15:50)
[2023-11-20] MEDS ORDERED: Meropenem 1,000 MG in NS 100 ML IV ONE (15:50)
[2023-11-20] MEDS ORDERED: Acetaminophen 325 MG TABLET PO PRN (16:00)
[2023-11-20] MEDS ORDERED: TraMADol HCl 50 MG Tab PO PRN (16:05)
[2023-11-20] MEDS ORDERED: Baclofen 10 MG Tab PO PRN (16:05)
[2023-11-20] MEDS ORDERED: Sennosides 8.6 MG Tab PO PRN (16:05)
[2023-11-20] MEDS ORDERED: OxyCODONE HCL 5 MG TAB PO PRN (16:10)
[2023-11-20] MEDS ORDERED: NS 1,000 ML IV SCH (16:55)
[2023-11-20 17:57] VITALS: BP 138/55
--- NOTE | 2023-11-20 18:45 | NUR ---
SHIFT SUMMARY PT ARRIVED TO THE FLOOR AT 1745. PT A&OX4, VSS, BEDREST, TOLERATING PO, AND DENIED PAIN. PT ORIENTED TO ROOM AND CALL LIGHT. PICTURE TAKEN OF WOUND AND PLACED IN CHART.
[2023-11-20] MEDS ORDERED: Gabapentin 300 MG Cap PO SCH (21:00)
[2023-11-20] MEDS ORDERED: Insulin Glargine-Yfgn 100 Unit/mL 3 ML SYR SC SCH (21:00)
[2023-11-20] MEDS ORDERED: Pravastatin Sodium 20 MG Tab PO SCH (21:00)
[2023-11-20] MEDS ORDERED: Lactobacil 2-S.Thermo-Bifido 1 1 Cap PO SCH (21:00)
[2023-11-20 21:04] VITALS: BP 126/43
[2023-11-21] MEDS ORDERED: Meropenem 1,000 MG in NS 100 ML IV SCH
--- NOTE | 2023-11-21 01:44 | NUR ---
CONSULT FAX'D FROM DR JIN SAXENA TO DR HERNANDEZ RE LEFT FOOT. AM RN TO CALL RE FOLLOW UP WITH MD OFFICE.
--- NOTE | 2023-11-21 03:18 | NUR ---
REIMBURSEMENT SPECIALIST SUMMARY VSS. RECEIVING ANTIBIOTICS FOR DIABETIC LEFT FOOT INFECTION - SEE MAR FOR DETAILS. ALERT TO QUESTIONS ASKED. COOPERATIVE WITH CARE. NPO AT HS FOR POSSIBLE PROCEDURE IN THE AM. CONSULT FROM DR JIN SAXENA TO DR HERNANDEZ FAX'D FOR REVIEW OF LEFT FOOT. WILL ASK AM RN TO FOLLOW UP WITH CALL RE WHICH MD WILL ASSESS IS REPORTED DR HERNANDEZ IS ON VACATION. CONTACT ISOLATION IN PLACE FOR MRSA IN WOUND. HAS BEEN RESTING QUIETLY WITH FEW INTERRUPTIONS. ABLE TO REPOSITION SELF IN BED FOR COMFORT. CALL LIGHT IN REACH, RAILS UP X 2 AND BED IN LOW POSITION FOR SAFETY. WILL CONTINUE TO MONITOR
[2023-11-21 04:20] VITALS: BP 110/48
[2023-11-21 05:04] LABS: BASOPHILS ABSOLUTE AUTO 0.02 K/mm3 (0.00-0.23); BASOPHILS PERCENT AUTO 0 % (0-2); EOSINOPHILS ABSOLUTE AUTO 0.12 K/mm3 (0.00-0.68); EOSINOPHILS PERCENT AUTO 2 % (0-6); Hemoglobin 7.5 g/dL (11.5-16.0); IMMATURE GRAN ABSOLUTE AUTO 0.13 K/mm3 (0.00-0.10); IMMATURE GRAN PERCENT AUTO 2 % (0-1); LYMPHOCYTES PERCENT AUTO 8 % (21-46); MONOCYTES PERCENT AUTO 7 % (4-13); Mean Corpuscular HGB 24.1 pg (26.0-34.0); Mean Corpuscular HGB Conc 28.8 g/dL (31.5-36.5); Mean Corpuscular Volume 84 fL (80-100); Mean Platelet Volume 8.6 fL (9.1-12.4); NEUTROPHILS ABSOLUTE AUTO 6.32 K/mm3 (1.96-9.15); NEUTROPHILS PERCENT AUTO 82 % (41-73); NRBC ABSOLUTE 0.02 K/mm3 (0.00-0.02); NRBC Auto 0.3 /100 WBC (0.0-0.2); Platelet Count 162 K/mm3 (150-400); RDW Coefficient Variation 17.4 % (11.7-14.2); RDW Standard Deviation 53.1 fL (35.1-46.3); Red Blood Cell Count 3.11 M/mm3 (3.80-5.20); White Blood Cell Count 7.69 K/mm3 (4.00-11.30)
[2023-11-21 05:38] LABS: Alanine Aminotransfer (ALT/SGP 14 U/L (12-78); Albumin/Globulin Ratio 0.5 (0.8-1.8); Alk Phos 87 U/L (50-136); Anion Gap 10 mmol/L (3-11); Aspartate Aminotrans (AST/SGOT 13 U/L (12-37); Bilirubin, Total 0.4 mg/dL (0.1-1.0); Blood Urea Nitrogen 91 mg/dL (8-24); Bun/Creatinine Ratio 47.2 (12.0-20.0); CO2, Blood 28 mmol/L (21-32); Calcium, Blood 8.1 mg/dL (8.5-10.1); Chloride, Blood 101 mmol/L (98-108); Creatinine, Blood 1.93 mg/dL (0.40-1.00); Globulin, Blood 4.3 g/dL (2.2-4.0); Glomerular Filtration Rate 27 (60-); Glucose, Blood 128 mg/dL (70-99); Potassium, Blood 4.1 mmol/L (3.5-5.5); Sodium, Blood 135 mmol/L (136-145); Total Protein, Blood 6.3 g/dL (6.4-8.2); Vancomycin, Random 23.1 ug/mL
[2023-11-21] MEDS ORDERED: Levothyroxine Sodium 0.1 MG Tab PO SCH (06:00)
[2023-11-21 07:26] VITALS: BP 106/43
[2023-11-21] MEDS ORDERED: Lisinopril 10 MG Tab PO SCH (09:00)
[2023-11-21] MEDS ORDERED: Allopurinol 100 MG Tab PO SCH (09:00)
[2023-11-21] MEDS ORDERED: Enoxaparin 40 MG/0.4 ML SYR SC SCH (09:00)
[2023-11-21] MEDS ORDERED: Enoxaparin 30 MG/0.3 ML SYR SC SCH (09:00)
[2023-11-21] MEDS ORDERED: Sertraline HCl 50 MG Tab PO SCH (09:00)
[2023-11-21] MEDS ORDERED: Cholecalciferol 1000 Unit Tablet (=25MCG) PO SCH (09:00)
[2023-11-21] MEDS ORDERED: Insulin Human Lispro 100 Units/ML 3ML Syringe SC SCH ×2 (11:30→12:00)
[2023-11-21 13:17] LABS: Source, Urine Foley catheter
[2023-11-21 13:21] LABS: Appearance, Urine Clear (Clear); Bilirubin, Urine Neg (Neg); Blood, Urine Neg (Neg); Glucose Qualitative, Urine Neg (Neg); Ketones, Urine Neg (Neg); Leukocyte Esterase, Urine Neg (Neg); Nitrite, Urine Neg (Neg); Protein, Urine 1+ (Neg); Specific Gravity, Urine 1.015 (1.003-1.022); Urobilinogen, Urine NORM (Normal)
[2023-11-21 13:31] LABS: Color, Urine Pale Yellow (P-Yellow)
[2023-11-21] MEDS ORDERED: Miconazole Nitrate 2% 85 GM PWD TOP SCH (14:00)
[2023-11-21 16:00] VITALS: BP 109/33
[2023-11-21 16:09] VITALS: BP 111/48
[2023-11-21] MEDS ORDERED: Vancomycin HCL 1,000 MG in NS 250 ML IV SCH (17:00)
[2023-11-21 19:10] VITALS: BP 123/82
--- NOTE | 2023-11-21 19:24 | NUR ---
SHIFT SUMMARY ROSAMARIA PLACED THIS SHIFT FOR RETENTION AND FLUIDS D/C. ROUNDED ON PT AND PLAN FOR SURGERY ONCE IS BACK IN OFFICE NEXT WEEK. NO OTHER ACUTE CHANGES. CALL LIGHT WITHIN REACH AND PT ABLE TO MAKE NEEDS KNOWN.
[2023-11-22 04:17] VITALS: BP 124/41
--- NOTE | 2023-11-22 05:51 | NUR ---
END OF SHIFT SUMMARY NO ACUTE ISSUES OVERNIGHT. PT HAS NO COMPLAINTS. APPEARED TO SLEEP WELL. BLANK DRAINING YELLOW URINE TO GRAVITY. TURNED EVERY TWO HOURS. NECROTIC FOOT KEPT ON PILLOW. FAMILY VISITED LAST NIGHT. FALL PRECAUTIONS IN PLACE, CALL LIGHT WITHIN REACH.
[2023-11-22 07:55] VITALS: BP 121/46
[2023-11-22] MEDS ORDERED: CefTRIAXone Sodium 1,000 MG in NS 100 ML IV SCH (09:00)
[2023-11-22 15:26] VITALS: BP 115/45
--- NOTE | 2023-11-22 17:52 | NUR ---
alert and oriented, no acute changes, pleasant to all, care, clearly makes needs known, family visited today, patient continent for bedpan, vss, no tremors seen, left foot elevated. call light with in reach, denied need for pain medications. repositioned through out the shift, patient indepedant to shift self in bed, will relay to pm rn
[2023-11-22 19:15] VITALS: BP 109/44
[2023-11-23 03:48] VITALS: BP 141/52
--- NOTE | 2023-11-23 04:33 | NUR ---
NOC SHIFT SUMMARY NO ACUTE CHANGES OVERNIGHT. PT HAS VERY MINOR DISCOMFORT IN LEFT FOOT BUT NOT ENOUGH TO WANT ANY MEDICATION. SHE APPEARED TO SLEEP WELL WITH NO COMPLAINTS. REMINDED TO TURN EVERY TWO HOURS THROUGHOUT THE NIGHT AND ASSISTED NEEDED. BLANK CATHETER DRAINING YELLOW URINE. L FOOT KEPT ON PILLOW THROUGHOUT THE NIGHT. FALL PRECAUTIONS IN PLACE, BED ALARM ON, CALL LIGHT WITHIN REACH.
[2023-11-23 06:22] LABS: BASOPHILS ABSOLUTE AUTO 0.03 K/mm3 (0.00-0.23); BASOPHILS PERCENT AUTO 0 % (0-2); EOSINOPHILS ABSOLUTE AUTO 0.18 K/mm3 (0.00-0.68); EOSINOPHILS PERCENT AUTO 3 % (0-6); Hematocrit 26.2 % (33.0-51.0); Hemoglobin 7.7 g/dL (11.5-16.0); IMMATURE GRAN ABSOLUTE AUTO 0.11 K/mm3 (0.00-0.10); IMMATURE GRAN PERCENT AUTO 2 % (0-1); LYMPHOCYTES ABSOLUTE AUTO 0.69 K/mm3 (0.84-5.20); LYMPHOCYTES PERCENT AUTO 10 % (21-46); MONOCYTES ABSOLUTE AUTO 0.66 K/mm3 (0.16-1.47); MONOCYTES PERCENT AUTO 10 % (4-13); Mean Corpuscular HGB 24.7 pg (26.0-34.0); Mean Corpuscular HGB Conc 29.4 g/dL (31.5-36.5); Mean Corpuscular Volume 84 fL (80-100); Mean Platelet Volume 9.1 fL (9.1-12.4); NEUTROPHILS ABSOLUTE AUTO 5.17 K/mm3 (1.96-9.15); NEUTROPHILS PERCENT AUTO 76 % (41-73); Platelet Count 142 K/mm3 (150-400); RDW Coefficient Variation 17.2 % (11.7-14.2); RDW Standard Deviation 53.1 fL (35.1-46.3); Red Blood Cell Count 3.12 M/mm3 (3.80-5.20); White Blood Cell Count 6.84 K/mm3 (4.00-11.30)
[2023-11-23 06:41] LABS: Bun/Creatinine Ratio 46.7 (12.0-20.0); Calcium, Blood 8.5 mg/dL (8.5-10.1); Creatinine, Blood 1.5 mg/dL (0.40-1.00); Potassium, Blood 4.5 mmol/L (3.5-5.5)
[2023-11-23 07:25] VITALS: BP 143/55
[2023-11-23 15:23] VITALS: BP 133/52
--- NOTE | 2023-11-23 18:02 | NUR ---
NO ACUTE CHANGES, PLEASANT TO ALL CARE, CONTINENT TO USSE BEDPAN, MCGLADE TO DO REVASULARIZATION TOMORROW. VSS. 94% ON RA, DIMIISHED LUNG SOUNDS, NO SOB, DENEIS FURTHER CONCERNS OR NEEDS, REFUSED PAIN MEDICATION THROUGH THE DAY, CALL LIGHT WITH IN REACH, WILL RELAY TO PM RN
[2023-11-23 19:41] VITALS: BP 136/41
[2023-11-24 04:21] VITALS: BP 130/46
[2023-11-24 04:47] LABS: BASOPHILS ABSOLUTE AUTO 0.03 K/mm3 (0.00-0.23); BASOPHILS PERCENT AUTO 0 % (0-2); EOSINOPHILS ABSOLUTE AUTO 0.23 K/mm3 (0.00-0.68); EOSINOPHILS PERCENT AUTO 3 % (0-6); Hematocrit 25.9 % (33.0-51.0); Hemoglobin 7.6 g/dL (11.5-16.0); IMMATURE GRAN ABSOLUTE AUTO 0.09 K/mm3 (0.00-0.10); IMMATURE GRAN PERCENT AUTO 1 % (0-1); LYMPHOCYTES ABSOLUTE AUTO 0.83 K/mm3 (0.84-5.20); LYMPHOCYTES PERCENT AUTO 11 % (21-46); MONOCYTES ABSOLUTE AUTO 0.73 K/mm3 (0.16-1.47); MONOCYTES PERCENT AUTO 10 % (4-13); Mean Corpuscular HGB 24.7 pg (26.0-34.0); Mean Corpuscular HGB Conc 29.3 g/dL (31.5-36.5); Mean Corpuscular Volume 84 fL (80-100); Mean Platelet Volume 9.1 fL (9.1-12.4); NEUTROPHILS ABSOLUTE AUTO 5.48 K/mm3 (1.96-9.15); NEUTROPHILS PERCENT AUTO 74 % (41-73); Platelet Count 140 K/mm3 (150-400); RDW Coefficient Variation 17.2 % (11.7-14.2); RDW Standard Deviation 53.1 fL (35.1-46.3); Red Blood Cell Count 3.08 M/mm3 (3.80-5.20); White Blood Cell Count 7.39 K/mm3 (4.00-11.30)
[2023-11-24 05:08] LABS: Bun/Creatinine Ratio 39.1 (12.0-20.0); Calcium, Blood 8.3 mg/dL (8.5-10.1); Creatinine, Blood 1.38 mg/dL (0.40-1.00); Potassium, Blood 4.5 mmol/L (3.5-5.5)
--- NOTE | 2023-11-24 06:25 | NUR ---
NOC SHIFT SUMMARY NO ACUTE CHANGES OVERNIGHT. PT HAS VERY MINOR DISCOMFORT IN LEFT FT BUT NOT ENOUGH TO WANT ANY MEDICATION. SHE APPEARED TO SLEEP WELL WITH NO COMPLAINTS. REMINDED TO TURN EVERY TWO HOURS THROUGHOUT THE NIGHT AND ASSISTED NEEDED. BLANK CATHETER DRAINING YELLOW URINE. L FT KEPT ON PILLOW. FALL PRECAUTIONS IN PLACE. BED ALARM ON. CALL LIGHT WITHIN REACH. ENOXAPARIN CHARTED AGAINST/PUT ON HOLD. ANTICIPATING IR PROCEDURE TODAY. PT HAS BEEN NPO SINCE MIDNIGHT.
[2023-11-24 07:21] VITALS: BP 151/63
[2023-11-24] MEDS ORDERED: NS 250 ML IV PRN (10:10)
[2023-11-24 14:58] VITALS: BP 135/50
[2023-11-24] MEDS ORDERED: Arginine/Glutamine/Calcium Hmb 1 Packet PO SCH (15:15)
[2023-11-24 20:34] VITALS: BP 138/47
[2023-11-25] VITALS (12 sets, daily range): BP systolic 142–181; BP diastolic 46–67
--- NOTE | 2023-11-25 03:47 | NUR ---
NOC SHIFT SUMMARY NO ACUTE CHANGES OVERNIGHT. PT OCCASIONALLY HAS VERY MINOR DISCOMFORT IN HER L LEG BUT NOT ENOUGHT TO DESIRE ANY MEDICATION. SHE APEARED TO SLEEP WELL WITH NO COMPLAINTS. REMINDED TO TURN EVERY TWO HOURS THROUGHOUT THE NIGHT AND ASSISTED NEEDED. BLANK CATHETER DRAINING YELLOW URINE. L FT KEPT ON PILLOW. FALL PRECAUTIONS IN PLACE. BED ALARM ON. CALL LIGHT WITHIN REACH. ENOXAPARIN ON HOLD FOR ANTICIPATED PROCEDURE. ANTICIPATING IR PROCEDURE TODAY. PT HAS BEEN NPO SINCE MIDNIGHT.
--- NOTE | 2023-11-25 10:23 | NUR ---
PATIENT ALERT & ORIENTED TIMES FOUR. INFECTION NOTED LEFT FOOT, DIABETIC FOOT ULCER. REVASCULARIZATION TODAY. VSS, CALM AND COOPERATIVE, ANTIBIOTICS GIVEN, NPO.
--- NOTE | 2023-11-25 11:34 | NUR ---
PATIENT ALERT AND ORIENTED TIMES THREE. VSS, NPO FOR REVASCULARZATION. TREATMENT ANTIBIOTICS FOR DIABETIC ULCER.
[2023-11-25] MEDS ORDERED: NS 1,000 ML IV ONE ×2 (14:42→14:48)
[2023-11-25] MEDS ORDERED: Nitroglycerin 2 MG/20 ML BTL ONE (14:42)
[2023-11-25] MEDS ORDERED: Heparin Sodium 1000 Units/ML 10ML MDV ONE (14:42)
[2023-11-25] MEDS ORDERED: NS 250 ML IV ONE (14:42)
[2023-11-25] MEDS ORDERED: Midazolam HCl 1MG / ML 2ML Vial ONE (15:44)
[2023-11-25] MEDS ORDERED: FentaNYL Citrate 50 MCG/ML 2 ML Injection ONE (15:45)
--- NOTE | 2023-11-25 17:34 | NUR ---
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 pt has clear but diminished lung sounds t/o and abd lg soft and positive bt present time 4quad.. pt has right bka and a left leg that has black big toes along with black second digit. foot is warm to the touch. pt states she can feel a general pressure touch to left foot. pt has doppler pulses dorsalis pedal and post tibial. Pt has a carreno with 200cc clear yellow urine out in bag. pictures to be taken of left foot wounds. Pt admitly denies pain. Pt has sinus rhythm pulse 65 wtih sao2 94% on room air. afebrile 96.8 F. call light given to patient . pt to remain flat s/p angieseal to right groin. no hematoma, no bleeding or oozing at this time .
[2023-11-25] MEDS ORDERED: HYDROmorphone HCl/Pf 1MG SYR IV PRN (18:55)
--- NOTE | 2023-11-25 19:01 | NUR ---
END OF SHIFT NOTE PT AWAKE AND ALERT AND ORIENTED X 3. SHE IS SUPINATED D/T RECOVERY FROM ANGIO SEAL TO RIGHT GROIN S/P BALLOONING VEINS IN LEFT LEG FROM [facility] AND [employer] [employer]. PT COMPLAINING OF PAIN TO HER LEFT FOOT ABOUT 1 HR POST , OXYCODONE GIVEN AND DR DWYER WAS CALLED FOR MORE AFFECTIVE PAIN MEDICATION. PT HUNGRY , NO ADVANCE DIET OF YET. REPORT GIVEN TO NEXT SHIFT
--- NOTE | 2023-11-25 21:42 | NUR ---
PATIENT AWAKE AND ALERT, NO COMPLAINT OF PAIN, BUT BLOOD PRESSURE WITH 180'S SYSTOLIC. DR. DWYER CALLED AND NO NEW ORDERS, BLOOD PRESSURE TRENDING DOWN AT PRESENT TIME. FAMILY AT BEDSIDE AND INFORMED OF PROGRESS.
[2023-11-26 00:09] VITALS: BP 146/57
--- NOTE | 2023-11-26 08:00 | NUR ---
NURSING PCU DAYSHIFT: Assumed care of pt at approx 0700. A/O, very pleasant, cooperative w/care. Weak and requires assistance with some ADL's including repositioning and personal hygiene. Hx of R AKA, able to move all ext's w/some weakness noted. Skin is fragile, scattered bruising to UE's, redness to folds, L foot black w/foul odor, skin otherwise intact. Tele in place, NSR w/1st degree and BBB, no c/o CP/pressure, SBP 136 prior to a.m. meds, trace LLE edema, L pedal pulse faint but palpable, confirmed w/doppler. L/S cta in mid and upper lobes, bibasilar crackles (L>R), respirations shallow denies dyspnea, O2 sat 94% on 2L NC, no noted cough. Abd SNT, BT+, FC w/stat lock present and draining clear/yellow urine. PIV x1, s/l w/abx as scheduled. No s/s of acute distress this a.m. Seen by PMD, new d/o received. Changed to surgical status w/o tele. Message sent to ortho to discuss plan of care and possible amputation scheduled for today, awaiting callback. NPO at this time, lovenox held. Pt denies any current needs or questions regarding plan of care. Call light in reach, cont to monitor for any changes.
[2023-11-26 09:34] VITALS: BP 136/61
[2023-11-26 15:16] VITALS: BP 142/63
--- NOTE | 2023-11-26 17:25 | NUR ---
NURSING PCU DAYSHIFT SUMMARY: Pt has continued to do well t/o the shift. Laying in bed watching tv, resting comfortably. Q2 repositioning completed for skin health and to prevent breakdown. Bedbath/linen change completed by PCT. Seen by surgeon this afternoon, discussed plan for L BKA tomorrow. Dinner tray ordered, NPO at 2400 for anticipated procedure. Daughter at bedside t/o majority of the shift. Plan of care discussed w/pt and daughter, questions addressed. No s/s of acute distress at this time, call light in reach, cont to monitor until rpt is given to NOC RN. No s/s of acute distress
[2023-11-26 20:34] VITALS: BP 151/62
[2023-11-27] VITALS (24 sets, daily range): BP systolic 92–155; BP diastolic 37–82
--- NOTE | 2023-11-27 10:57 | NUR ---
AM NOTE this rn assumed care at 0700. vital signs stable. sugrical status. patient is alert and oriented x4. neuro is intact. and is able to make need known. denies chest pain/pressure, pain or shortness of breath. see shift assessment for further detials. bed bath and linen change. carreno cath draining with gravity. cath care done. md camargo in to see patient this am. md watt in to see patient and discussed doing a below knee amputation and went over the risks vs benefits. patient agreed and signed consent with the surgeon. plan to go this afternoon.
[2023-11-27] MEDS ORDERED: Lactated Ringer's 1,000 ML IV SCH (14:10)
[2023-11-27] MEDS ORDERED: EpiNEPhrine 1 MG/1 ML 1ML Vial ONE (14:45)
[2023-11-27] MEDS ORDERED: Bupivacaine 0.5% Inj 50 ML Vial ONE (14:45)
[2023-11-27] MEDS ORDERED: Midazolam HCl 1MG / ML 2ML Vial ONE (14:48)
[2023-11-27] MEDS ORDERED: HYDROmorphone HCl/Pf 1MG SYR IV PRN (15:35)
[2023-11-27] MEDS ORDERED: propofoL 20 ML IV ONE (15:38)
[2023-11-27] MEDS ORDERED: Bisacodyl 10 MG Supp PR PRN (15:40)
[2023-11-27] MEDS ORDERED: Ondansetron 4 MG TAB PO PRN (15:40)
[2023-11-27] MEDS ORDERED: Ondansetron HCl 2 MG / ML 2ML Vial IV PRN (15:40)
[2023-11-27] MEDS ORDERED: Acetaminophen 325 MG TABLET PO PRN (15:40)
[2023-11-27] MEDS ORDERED: Magnesium Hydroxide Conc 10 ML UDC PO PRN (15:40)
[2023-11-27] MEDS ORDERED: Naloxone HCl 0.4MG / ML 1ML Vial IV PRN (15:40)
[2023-11-27] MEDS ORDERED: NS 1,000 ML IV SCH (15:40)
[2023-11-27] MEDS ORDERED: OxyCODONE HCL 5 MG TAB PO PRN (15:45)
[2023-11-27] MEDS ORDERED: Vancomycin HCl 1000 MG ADDvantage ONE (15:56)
[2023-11-27] MEDS ORDERED: FentaNYL Citrate 50 MCG/ML 2 ML Injection ONE (15:59)
[2023-11-27] MEDS ORDERED: ePHEDrine Sulfate 50 MG/ML 1ML Injection ONE (16:16)
--- NOTE | 2023-11-27 18:29 | NUR ---
SHIFT SUMMARY patient went to OR approx 1300 and arrived back at 1820 to room. patient neuro remains intact. patient had left bka. dressing is intact with no draining. patient has a block in place and denies pain at this time. vital signs stable. patient can eat now. plan remains up to date
[2023-11-27] MEDS ORDERED: NS 500 ML IV ONE (20:15)
[2023-11-27] MEDS ORDERED: Docusate Sodium 100 MG Cap PO SCH (21:00)
[2023-11-28] VITALS (71 sets, daily range): BP systolic 63–154; BP diastolic 34–136
--- NOTE | 2023-11-28 00:49 | NUR ---
LATE NOTE. PT HAS BEEN HYPOTENSIVE THROUGHOUT MOST OF SHIFT. SPOKE WITH RESIDENT DR. DWYER EARLY IN SHIFT. ORDERED 500 ML BOLUS ONE TIME AND STATED THAT MAP >=60 ARE ACCEPTABLE. SINCE THAT TIME, MAP HAS MOSTLY REMAINED >60 WITH FEW INFREQUENT READINGS <60. WITHIN PAST ~45 MINUTES. MAP HAS AGAIN CONTINUED TO TREND DOWN. CALLED TO NOTIFY RESIDENT DR. DWYER WHO INFORMED THAT HE WILL COME TO FLOOR TO DISCUSS. AWAITING ARRIVAL AND CONTINUING TO MONITOR.
[2023-11-28] MEDS ORDERED: NS 1,000 ML IV SCH ×3 (00:50→04:30)
--- NOTE | 2023-11-28 02:49 | NUR ---
SPOKE AGAIN WITH DR. DWYER. PT HAS HAD 75 MLS OF URINE OUTPUT IN CATHETER THUS FAR THIS SHIFT. NOTIFIED THAT MORNING LABS HAVE NOT BEEN DRAWN SINCE 11/23 SO RENAL FUNCTION LABS ARE NOT UP TO DATE. ORDERED FOR MORNING LABS THIS MORNING. DR. DWYER ORDERED TO BOLUS 500 MLS OF THE BAG THAT IS RUNNING RIGHT NOW. CURRENTLY RUNNING AT BOLUS RATE. CONTINUING TO MONITOR.
[2023-11-28 03:43] LABS: BASOPHILS ABSOLUTE AUTO 0.04 K/mm3 (0.00-0.23); BASOPHILS PERCENT AUTO 1 % (0-2); EOSINOPHILS ABSOLUTE AUTO 0.14 K/mm3 (0.00-0.68); EOSINOPHILS PERCENT AUTO 2 % (0-6); Hemoglobin 6.9 g/dL (11.5-16.0); IMMATURE GRAN PERCENT AUTO 2 % (0-1); LYMPHOCYTES ABSOLUTE AUTO 0.79 K/mm3 (0.84-5.20); LYMPHOCYTES PERCENT AUTO 12 % (21-46); MONOCYTES ABSOLUTE AUTO 0.54 K/mm3 (0.16-1.47); MONOCYTES PERCENT AUTO 9 % (4-13); Mean Corpuscular HGB 24.4 pg (26.0-34.0); Mean Corpuscular HGB Conc 27.6 g/dL (31.5-36.5); Mean Corpuscular Volume 88 fL (80-100); Mean Platelet Volume 9.5 fL (9.1-12.4); NEUTROPHILS ABSOLUTE AUTO 4.76 K/mm3 (1.96-9.15); NEUTROPHILS PERCENT AUTO 75 % (41-73); Platelet Count 171 K/mm3 (150-400); RDW Coefficient Variation 17.3 % (11.7-14.2); RDW Standard Deviation 55.4 fL (35.1-46.3); Red Blood Cell Count 2.83 M/mm3 (3.80-5.20); White Blood Cell Count 6.37 K/mm3 (4.00-11.30)
[2023-11-28 04:03] LABS: Bun/Creatinine Ratio 36.1 (12.0-20.0); Calcium, Blood 7.5 mg/dL (8.5-10.1); Creatinine, Blood 1.47 mg/dL (0.40-1.00); Magnesium, Blood 1.9 mg/dL (1.6-2.4); Potassium, Blood 5.1 mmol/L (3.5-5.5)
[2023-11-28] MEDS ORDERED: NS 500 ML IV ONE (04:30)
--- NOTE | 2023-11-28 04:40 | NUR ---
SHIFT SUMMARY. AOX3-4, PLEASANT, COOPERATIVE WITH CARE, CALLS APPROPRIATELY, ABLE TO MAKE NEEDS KNOWN. PT BP HAS CONTINUED TO BE BORDERLINE ACCEPTABLE THROUGHOUT MOST OF SHIFT. MAP HAS CONSISTENTLY BEEN DIPPING BELOW 60 WHILE AT TIMES REMAINING ABOVE 60 FOR EXTENDED PERIODS OF TIME. ON MOST RECENT DIP <60, SPOKE WITH DR. DWYER WHO ORDERED AN ADDITIONAL 500 ML BOLUS + MAINTENENCE FLUIDS @ 125MLS/HR UPON COMPLETION OF BOLUS. PT HGB 6.[address] DWYER ORDERED ONE UNIT OF BLOOD TO BE INFUSED. TYPE AND CROSS COLLECTED, AWAITING SLIP. PT MADE PCU STATUS FROM SURGICAL EARLY THIS MORNING. TELE IN PLACE SINCE WITH PT RUNNING SINUS SINCE TELE WAS PUT IN PLACE. PAIN HAS BEEN ADEQUATELY MANAGED VIA EMAR. URINE OUTPUT HAS BEEN MINIMAL THROUGHOUT SHIFT. NOTIFIED DR. DWYER AND NO ORDERS WERE GIVEN. PT REPORTS FEELING PRETTY GOOD DESPITE ALL OF THIS AND STATES SHE HAS NO COMPLAINTS. VITALS HAVE BEEN STABLE OUTSIDE OF BP. HAS DESATURATED INTO 80s FEW TIMES WHILE SLEEPING, TITRATED UP TO 4 L O2 VIA NC AND HAS MOSTLY REMAINED >92% SINCE. BED LOCKED IN LOWEST POSITION. CALL LIGHT LEFT WITHIN REACH. CONTINUING TO MONITOR.
--- NOTE | 2023-11-28 09:32 | NUR ---
[place] of Care: Care assumed at 0700hr. Patient alert and oriented x4. VSS, with SpO2 at 98% on 3L/NC, Denies dyspnea/SOB. BP shows systolic's in the low 100's, MAP's in the 60's, no levophed infusion started. 1u PRBC infusing at shift change, finished at approx 0820hr. Reports pain to lt stump (surgical site), not wishing to receive prn medications at shift change but did accept prn Dilaudid at this time, will monitor for effect. Peripheral IV x1 patent and intact. Luis cath patent and intact. Lt stump (BKA) has compression stalking in place. No s/s of bleeding, proximal limb wnl. Call light in reach, makes needs known. Daughter at bedside. Will continue to monitor.
--- NOTE | 2023-11-28 15:02 | NUR ---
Dr Chamberlain notified that pt has a stage 2 pressure ulcer on her sacrum.
[2023-11-28] MEDS ORDERED: Enoxaparin 30 MG/0.3 ML SYR SC SCH (17:00)
--- NOTE | 2023-11-28 18:09 | NUR ---
Shift Summary: No significant changes throughout shift. Sleeping on/off throughout shift but easily roused to a/o x4. c/o pain to lt stump effectively manages with x2 prn oxycodone and x3 prn IC dilaudid. BP remains soft throughout shift. This afternoon, MAP decreased to 40's-50's, all other VSS. Call placed to Dr. Chamberlain, received order to transfuse x1u PRBC's. BP has since improved with systolic's in low 100's MAP's greater than 60. Only approx 200ml urine output this shift, Dr. Chamberlain also made aware of oliguria. New peripheral IV placed to lt hand, patent and intact. Cooperated well with PT/OT today. Call light in reach. Makes needs known. Will continue to monitor until report to NOC shift RN.
[2023-11-28 19:29] LABS: Hemoglobin 9.2 g/dL (11.5-16.0)
--- NOTE | 2023-11-28 21:30 | NUR ---
ASSUMPTION OF CARE/ASSESSMENT: ASSUMED CARE OF PT AT 1900; BEDSIDE SHIFT REPORT RECIEVED FROM ALFREDITO REDMOND. PT POD 2 FROM [facility]; PAIN 7/10 AND BEING MEDICATED WITH DILAUDID, OXYCODONE AND TYLENOL PRN WITH GOOD EFFECT. LEFT LEG SITE BANDAGE C/D/I, TENDER TO TOUCH. PT REMAINS A&O X 4, PLEASANT AND COOPERATIVE WITH CARE. PT ON 3-5 LPM VIA NC, SPO2 96< AND DENIES SOB. SR ON MONITOR, BP STABLE. ABD SOFT, NON-TENDER, AND IS C/O DECREASED APPETITE. BLANK IN PLACE THAT IS PATENT AND DRAINING TO GRAVITY. PIV TO LWR WITH BLOOD RETURN. PT'S DAUGHTER AT BEDSIDE. BED LOWERED, CALL LIGHT IN REACH.
[2023-11-29] VITALS (17 sets, daily range): BP systolic 88–147; BP diastolic 39–88
[2023-11-29] MEDS ORDERED: Midodrine 5 MG Tab PO PRN (02:35)
[2023-11-29 03:20] LABS: BASOPHILS ABSOLUTE AUTO 0.07 K/mm3 (0.00-0.23); BASOPHILS PERCENT AUTO 1 % (0-2); EOSINOPHILS ABSOLUTE AUTO 0.25 K/mm3 (0.00-0.68); EOSINOPHILS PERCENT AUTO 3 % (0-6); Hematocrit 30.1 % (33.0-51.0); IMMATURE GRAN ABSOLUTE AUTO 0.13 K/mm3 (0.00-0.10); IMMATURE GRAN PERCENT AUTO 2 % (0-1); LYMPHOCYTES ABSOLUTE AUTO 0.97 K/mm3 (0.84-5.20); LYMPHOCYTES PERCENT AUTO 13 % (21-46); MONOCYTES ABSOLUTE AUTO 0.75 K/mm3 (0.16-1.47); MONOCYTES PERCENT AUTO 10 % (4-13); Mean Corpuscular HGB 25.4 pg (26.0-34.0); Mean Corpuscular HGB Conc 29.9 g/dL (31.5-36.5); Mean Corpuscular Volume 85 fL (80-100); Mean Platelet Volume 9.5 fL (9.1-12.4); NEUTROPHILS ABSOLUTE AUTO 5.61 K/mm3 (1.96-9.15); NEUTROPHILS PERCENT AUTO 72 % (41-73); Platelet Count 182 K/mm3 (150-400); RDW Coefficient Variation 16.9 % (11.7-14.2); RDW Standard Deviation 52.4 fL (35.1-46.3); Red Blood Cell Count 3.54 M/mm3 (3.80-5.20); White Blood Cell Count 7.78 K/mm3 (4.00-11.30)
[2023-11-29 03:44] LABS: Albumin, Blood 1.9 g/dL (3.4-5.0); Anion Gap 10 mmol/L (3-11); Blood Urea Nitrogen 61 mg/dL (8-24); Bun/Creatinine Ratio 38.9 (12.0-20.0); CO2, Blood 23 mmol/L (21-32); Calcium, Blood 7.5 mg/dL (8.5-10.1); Chloride, Blood 109 mmol/L (98-108); Creatinine, Blood 1.57 mg/dL (0.40-1.00); Glomerular Filtration Rate 35 (60-); Glucose, Blood 149 mg/dL (70-99); Phosphorus, Blood 2.4 mg/dL (2.5-4.9); Potassium, Blood 5.1 mmol/L (3.5-5.5); Sodium, Blood 137 mmol/L (136-145)
--- NOTE | 2023-11-29 06:36 | NUR ---
MAP COMPILER PATIENT IS A&OX4, SOFT BP, ON ROOM AIR, ON TELE RUNNING SINUS RHYTHM. PATIENT COMPLAINED OF CONSTANT PAIN, PRN PAIN MEDS GIVEN. PATIENT GOT TRANSFERED FROM ICU THIS MORNING TO [facility].
[2023-11-29] MEDS ORDERED: Potassium Phosphate,Monobasic 500 MG Tablet PO SCH (09:00)
--- NOTE | 2023-11-29 19:34 | NUR ---
SHIFT REPORT VSS, A&O X4, COMPLAINT OF PAIN TX DILUADID, NO SWELLING NOTED, SURGEON SAW PATIENT, GAVE ORDERS FOR DRESSING CHANGE. LOW POTASSIUM GAVE POTASSIUM SUPPLEMENT, INFECTION GAVE ROCEPHEN.
[2023-11-29] MEDS ORDERED: Linezolid 600 MG Tab PO SCH (21:00)
[2023-11-30 03:37] VITALS: BP 151/58
--- NOTE | 2023-11-30 05:07 | NUR ---
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 PATIENT COMPLAIN OF PAIN TO LEFT AMPUTATED FOOT. PRN PAIN MEDS GIVEN.
[2023-11-30 07:03] LABS: Anion Gap 11 mmol/L (3-11); Blood Urea Nitrogen 75 mg/dL (8-24); Bun/Creatinine Ratio 42.6 (12.0-20.0); CO2, Blood 23 mmol/L (21-32); Calcium, Blood 8.1 mg/dL (8.5-10.1); Chloride, Blood 108 mmol/L (98-108); Creatinine, Blood 1.76 mg/dL (0.40-1.00); Glomerular Filtration Rate 30 (60-); Glucose, Blood 128 mg/dL (70-99); Phosphorus, Blood 3.1 mg/dL (2.5-4.9); Potassium, Blood 4.9 mmol/L (3.5-5.5); Sodium, Blood 137 mmol/L (136-145)
[2023-11-30 07:15] VITALS: BP 172/70
[2023-11-30 08:59] LABS: HIV 1,2 COMBO ANTIGEN/ANTIBODY Negative (Negative)
[2023-11-30] MEDS ORDERED: Bumetanide 1 MG Tab PO SCH (09:00)
[2023-11-30 09:29] LABS: HEPATITIS C AB CIA INTERP Negative (Negative); HEPATITIS C ANTIBODY CIA INDEX 0.08 IV
[2023-11-30 10:01] VITALS: BP 100/51
[2023-11-30 16:04] VITALS: BP 99/44
[2023-11-30 20:42] VITALS: BP 127/61
[2023-11-30] MEDS ORDERED: Sennosides 8.6 MG Tab PO SCH (21:00)
--- NOTE | 2023-12-01 03:22 | NUR ---
COTTON JAMMER SUMMARY VSS. ACCU CHECK AT HS WAS 159, CVERAGE GIVEN - SEE MAR FOR DETAILS. ALERT AND ORIENTED. CHERFUL AFFECT, JOKES WITH NURSE. ROSAMARIA WAS DC'D AND PUREWICK IN PLACE. DRESSING OF LEFT BKA CDI. NO C/O PAIN THIS SHIFT. O2 AT 2L/MIN PER NC. HOB ELEVATED FOR COMFORT. CONT PULSE OX IN USE SATS AND HR WNL. REPOSITIONED/ WITH ASSIST. HAS BEEN RESTING QUIETLY WITH FEW INTERRUPTIONS. CALL LIGHT IN REACH, RAILS UP X 2 AND BED IN LOW POSITION FOR SAFETY. WILL CONTINUE TO MONITOR
[2023-12-01 03:32] VITALS: BP 124/54
[2023-12-01 05:48] LABS: Albumin, Blood 1.9 g/dL (3.4-5.0); Anion Gap 12 mmol/L (3-11); Blood Urea Nitrogen 89 mg/dL (8-24); Bun/Creatinine Ratio 48.4 (12.0-20.0); CO2, Blood 20 mmol/L (21-32); Calcium, Blood 8.3 mg/dL (8.5-10.1); Chloride, Blood 105 mmol/L (98-108); Creatinine, Blood 1.84 mg/dL (0.40-1.00); Glomerular Filtration Rate 29 (60-); Glucose, Blood 135 mg/dL (70-99); Phosphorus, Blood 3.4 mg/dL (2.5-4.9); Potassium, Blood 5.2 mmol/L (3.5-5.5); Sodium, Blood 132 mmol/L (136-145)
[2023-12-01 07:31] VITALS: BP 137/56
[2023-12-01] MEDS ORDERED: Enoxaparin 40 MG/0.4 ML SYR SC SCH (09:00)
[2023-12-01] MEDS ORDERED: Polyethylene Glycol 3350 17 gm PO SCH (15:00)
[2023-12-01 15:24] VITALS: BP 101/61
--- NOTE | 2023-12-01 17:26 | NUR ---
SHIFT SUMMARY PT WORKED WITH OCCUPATIONAL THERAPY TODAY. DRESSING TO L BKA INTACT & CLEAN. NO DRESSING CHANGE THIS SHIFT. PT MEDICATED FOR PAIN TWICE THIS SHIFT. SEE EMAR. EATING WELL TODAY. PT RETAINING >900 CC URINE THIS AM. PT WAS STRAIGHT CATHED AFTERWARDS. LATER PT HAD A BM AND VOIDED A LARGE VOLUME AT THE SAME TIME. PLAN TO DC TO SNF WHEN ACCEPTED AND READY FOR DC. NO OTHER ACUTE CHANGES IN ASSESSMENT AT THIS TIME. VS REVIEWED. CALL LIGHT IN REACH. DENIES OTHER NEEDS AT THIS TIME.
[2023-12-01 20:24] VITALS: BP 112/51
[2023-12-01] MEDS ORDERED: Docusate Sodium 100 MG Cap PO SCH (21:00)
[2023-12-02 02:56] VITALS: BP 132/53
--- NOTE | 2023-12-02 03:30 | NUR ---
ROLE PLAYER SUMMARY VSS. QUIET UNLESS SPOKEN TO, CHEERFUL AFFECT, JOKES WITH STAFF. RECEIVED CALL FROM DAUGHTER AND SPOKE WITH HER. HOB ELEVAATED, CONT PULSE OX - O2 SATS MAINLY IN THE 90'S, DROPPED INTO THE 80'S ONCE AND WAS ENCOURAGED TO TAKE DEEPER BREATHS, WHICH SHE DID AND SATS RETURNED TO THE 90'S. NOW USING THE BEDPAN THE PUREWICK DID NOT SEEM TO WORK. VOIDING AND BM SUFFICIENT. ASSISTED WITH REPOSITIONING FOR COMFORT. HAS BEEN RESTING QUIETLY WITH FEW INTERRUPTIONS. CALL LIGHT IN REACH, RAILS UP X 2 AND BED IN LOW POSITION FOR SAFETY. WILL CONTINUE TO MONITOR
[2023-12-02 05:44] LABS: Bun/Creatinine Ratio 51.1 (12.0-20.0); Calcium, Blood 8.3 mg/dL (8.5-10.1); Creatinine, Blood 1.84 mg/dL (0.40-1.00); Potassium, Blood 4.5 mmol/L (3.5-5.5)
[2023-12-02 07:35] VITALS: BP 129/50
[2023-12-02 14:49] VITALS: BP 111/53
--- NOTE | 2023-12-02 18:15 | NUR ---
SHIFT SUMMARY PT WORKED WITH PT/OT TODAY. PLAN TO DC TO SNF. CARE MANAGEMENT COORDINATING. PT MEDICATED FOR PAIN ONCE THIS SHIFT WITH GOOD RELIEF. WOUND CARE COMPLETED TO STUMP & NEW PHOTOS OBTAINED & PLACED IN HARD CHART. PT VOIDING LARGE VOLUMES THIS AM. LESS IN THE AFTERNOON, BUT STILL VOIDING. NO OTHER ACUTE CHANGES IN ASSESSMENT AT THIS TIME. VS REVIEWED. CALL LIGHT IN REACH. DENIES OTHER NEEDS AT THIS TIME. REPOSITIONED Q2H
[2023-12-03 08:00] VITALS: BP 124/58
[2023-12-03] MEDS ORDERED: JUVEN PACKET1 EAC3 PO (11:49)
[2023-12-03] MEDS ORDERED: LINE600 PO (11:49)
[2023-12-03] MEDS ORDERED: VISBIOME 112.51 EACH PO (11:49)
--- NOTE | 2023-12-03 13:50 | NUR ---
PT DISCHARGED WITH DC'D. REPORT WILL BE CALLED TO SNF/[facility]. PT'S DAUGHTER PRESENT AND WILL FOLLOW PT TO FACILITY IN PRIVATE CAR. PT MEDICATED WITH SSRI. IV'DC'D. BELONGINGS SENT INCLUDING STUMP SOCKS AND STUMP IS DRESSED FROM DRESSING CHANGE 12/01. MEDICATED WITH OXY FOR PAIN FOR TRIP TO FACILITY.
== END 2023-12-03 13:16 | DRG 240 ==
LOC: ER 11:10 → PCU 15:24 → MEDS 15:24 → PCU 11-25 16:37 → ICUE 11-28 06:56 → MEDS 11-29 03:23 → ENPENDDIS 12-03 11:29 → MEDS 12-03 13:16
PROVIDERS: Internal Medicine; Orthopaedic Surgery; Physician Assistant; ADMIT Family Medicine
PROC: 0T9B70Z Drainage of Bladder with Drainage Device, Via Natural or Artificial Opening (ICD-10-PCS; 2023-11-21)
PROC: 047Q3ZZ Dilation of Left Anterior Tibial Artery, Percutaneous Approach (ICD-10-PCS; 2023-11-25)
PROC: 047L3ZZ Dilation of Left Femoral Artery, Percutaneous Approach (ICD-10-PCS; 2023-11-25)
PROC: 0Y6J0Z1 Detachment at Left Lower Leg, High, Open Approach (ICD-10-PCS; principal; 2023-11-27 13:00)
PROC: 30233N1 Transfusion of Nonautologous Red Blood Cells into Peripheral Vein, Percutaneous Approach (ICD-10-PCS; 2023-11-28)
DX: E11.52 Type 2 diabetes mellitus with diabetic peripheral angiopathy with gangrene (principal); D62 Acute posthemorrhagic anemia; E87.1 Hypo-osmolality and hyponatremia; N17.9 Acute kidney failure, unspecified; I13.0 Hypertensive heart and chronic kidney disease with heart failure and stage 1 through stage 4 chronic kidney disease, or unspecified chronic kidney disease; I70.262 Atherosclerosis of native arteries of extremities with gangrene, left leg; E11.628 Type 2 diabetes mellitus with other skin complications; I95.81 Postprocedural hypotension; J45.909 Unspecified asthma, uncomplicated; I77.9 Disorder of arteries and arterioles, unspecified; E66.9 Obesity, unspecified; Z66 Do not resuscitate; R33.9 Retention of urine, unspecified; E11.22 Type 2 diabetes mellitus with diabetic chronic kidney disease; N18.32 Chronic kidney disease, stage 3b; E03.9 Hypothyroidism, unspecified; E11.42 Type 2 diabetes mellitus with diabetic polyneuropathy; F41.9 Anxiety disorder, unspecified; B95.1 Streptococcus, group B, as the cause of diseases classified elsewhere; F32.A Depression, unspecified; E11.69 Type 2 diabetes mellitus with other specified complication; E78.5 Hyperlipidemia, unspecified; M10.9 Gout, unspecified; B37.2 Candidiasis of skin and nail; D63.1 Anemia in chronic kidney disease; I50.9 Heart failure, unspecified; Z89.611 Acquired absence of right leg above knee; Z89.512 Acquired absence of left leg below knee; Z87.891 Personal history of nicotine dependence; Z90.710 Acquired absence of both cervix and uterus; Z89.421 Acquired absence of other right toe(s); Z89.411 Acquired absence of right great toe; Z88.1 Allergy status to other antibiotic agents; Z88.8 Allergy status to other drugs, medicaments and biological substances; Z88.2 Allergy status to sulfonamides; Z79.2 Long term (current) use of antibiotics; Z79.02 Long term (current) use of antithrombotics/antiplatelets; Z79.4 Long term (current) use of insulin; Z79.890 Hormone replacement therapy; Z79.891 Long term (current) use of opiate analgesic; Z79.899 Other long term (current) drug therapy; Z68.26 Body mass index [BMI] 26.0-26.9, adult
CPT/HCPCS: 36200; 36247; 36415; 36430; 37224; 37228; 75716; 75774; 76937; 80048; 80053; 80069; 80202; 82565; 82947; 83735; 85014; 85018; 85025; 86803; 86850; 86900; 86901; 86923; 87389; 88307; 94760; 94762; 97110; 97163; 97166; 97530; 99152; 99153; 99284; A9270; C1725; C1760; C1769; C1887; C1894; J0171; J0696; J1170; J1644; J1650; J1815; J2185; J2250; J2704; J3010; J3370; J7030; J7040; J7050; J7120; P9016; Q9967

== ENCOUNTER 2024-11-12 07:25 | Day surgery (SDC) | payer MEDICARE, OTHER ==
[~2024-11-12] VITALS: Ht 160 cm; Wt 95.0 kg
[~2024-11-12 07:25] MED LIST changes: +Acetaminophen325 M1 PO; +BASAGLAR K100 UNIT/8 SC; +JUVEN PACKET1 EAC3 PO; +LABE100 PO; +LINE600 PO; +NYSTATIN; +TRAM50 PO; +TRULICITY3 MG/0.5 M SQ; +VISBIOME 112.51 EACH PO; +VITAMIN D325 MC3 PO
[2024-11-12] MEDS ORDERED: SITA50T2 PO (07:26)
[2024-11-12] MEDS ORDERED: Bupivacaine 0.5% W/EPI 1:200000 SDV 30 ML Vial ONE (07:52)
[2024-11-12] MEDS ORDERED: Lidocaine 2%-Epineph 1:100000 20 ML MDV ONE (07:52)
[2024-11-12] MEDS ORDERED: Erythromycin 0.5% Opth Oint 1 gm ONE (07:52)
[2024-11-12 08:26] VITALS: BP 155/64
--- NOTE | 2024-11-12 08:29 | NUR ---
11/12/24 0829 BRITT STEWART PT IS NOT A GOOD HISTORIAN DDID NOT BRING MEDICTION LIST W/ TROUBLE REACHING [facility] UNTIL AFTER PT WAS ADMITTED FOR SURGERY. PT TOOK TRULICITY AND PLAVIX Friday11/10/24. CONTACTING SURGEON TO NOTIFY.
== END 2024-11-12 09:15 | disposition home or self-care (01) ==
LOC: ORSCSDS 07:25
DX: D49.2 Neoplasm of unspecified behavior of bone, soft tissue, and skin (principal); Z53.9 Procedure and treatment not carried out, unspecified reason; Z79.02 Long term (current) use of antithrombotics/antiplatelets
CPT/HCPCS: 82947; A9270

== ENCOUNTER 2024-11-26 08:16 | Day surgery (SDC) | payer MEDICARE, OTHER ==
[~2024-11-26] VITALS: Ht 160 cm; Wt 94.3 kg
[~2024-11-26 08:16] MED LIST changes: +SITA50T2 PO
[2024-11-26] MEDS ORDERED: Ondansetron HCl 2 MG / ML 2ML Vial ONE (08:44)
[2024-11-26] MEDS ORDERED: FentaNYL Citrate 50 MCG/ML 2 ML Injection ONE (08:44)
[2024-11-26] MEDS ORDERED: Dexamethasone Sod Phos 10 MG/ML 1ML VIAL ONE (08:44)
[2024-11-26] MEDS ORDERED: Lidocaine 2%-Epineph 1:100000 20 ML MDV ONE (09:06)
[2024-11-26] MEDS ORDERED: Erythromycin 0.5% Opth Oint 1 gm ONE (09:06)
[2024-11-26] MEDS ORDERED: Bupivacaine 0.5% W/EPI 1:200000 SDV 30 ML Vial ONE (09:06)
[2024-11-26] MEDS ORDERED: Citric Acid/Sodium Citrate 30 ML BTL ONE (09:25)
[2024-11-26] MEDS ORDERED: Ipratropium/Albuterol SulF 2.5-0.5MG/3 ML Amp ONE (09:46)
[2024-11-26] MEDS ORDERED: Tetracaine HCl/Pf 0.5% Opth Soln 4 ml ONE (10:02)
[2024-11-26] MEDS ORDERED: Artificial Tear Opth Oint 3.5 GM ONE (11:23)
--- NOTE | 2024-11-26 11:49 | NUR ---
11/26/24 1149 DENG AGEE PT BASELINE SUSTAINED ON 3L/MIN O2 TO STEPDOWN AREA.
[2024-11-26 12:40] VITALS: BP 138/56
== END 2024-11-26 13:14 | disposition home or self-care (01) ==
LOC: ORSCSDS 08:16
PROVIDERS: Ophthalmology
PROC: 0HB1XZX Excision of Face Skin, External Approach, Diagnostic (ICD-10-PCS; principal; 2024-11-26 10:00)
DX: C4A Merkel cell carcinoma (principal); Z79.899 Other long term (current) drug therapy; Z79.4 Long term (current) use of insulin; Z79.85 Long-term (current) use of injectable non-insulin antidiabetic drugs; E11.22 Type 2 diabetes mellitus with diabetic chronic kidney disease; I12.0 Hypertensive chronic kidney disease with stage 5 chronic kidney disease or end stage renal disease; N18.6 End stage renal disease; E11.40 Type 2 diabetes mellitus with diabetic neuropathy, unspecified; Z87.891 Personal history of nicotine dependence; E78.5 Hyperlipidemia, unspecified; E66.9 Obesity, unspecified; Z68.37 Body mass index [BMI] 37.0-37.9, adult
CPT/HCPCS: 82947; 88305; 88341; 88342; A9270; J1100; J2405; J2704; J3010; J7120